=== PATIENT | female | born 1955 | race African-American/Black ===

== ENCOUNTER 2016-03-30 15:50 | Emergency (ER) | payer MEDICAID ==
[~2016-03-30] VITALS: Ht 167.6 cm; Wt 53.5 kg
[~2016-03-30 15:50] MED LIST: ACETAMINOPHEN-1 EAC1; AZITHROMYCIN250 MG ORAL; IBUPROFEN600 MG ORAL; NORCO 5-325 TA1 EACH ORAL; TESSALON PERLE100 M2 ORAL
[2016-03-30 15:59] VITALS: BP 146/90
[2016-03-30] MEDS ORDERED: NKM (16:03)
--- NOTE | 2016-03-30 16:26 | Emergency Room Report ---
History of Present Illness General Chief Complaint: Skin Rash/Abscess Source: Patient Present Illness HPI 60-year-old female presents the emergency department relating of infected abscess to the right lower quadrant X4 days patient states that she believed it was an insect bite it was originally started as a small pimple that progressed evidentially opened and drained on its own. Patient reports a mild erythema around the lesion. Patient reports 10 out of 10 severity tenderness to the open wound. Patient denies nausea, vomiting, fevers, chills, patient denies lymphadenopathy or streaking. Patient denies history of immunocompromise. Denies that this lesion occurred from injection drug use. Denies CP, Palpitations, LOC, AMS, dizziness, Changes in Vision, Sensation, paresthesias, or a sudden severe headache. Allergies: Coded Allergies: No Known Allergies (Unverified , 11/12/13) Patient History Past Medical History: see triage record Past Surgical History: none Pertinent Family History: none Now: No Reviewed Nursing Documentation: PMH: Agreed, PSxH: Agreed Nursing Documentation-PMH Past Medical History: No History, Except For Hx Hypertension: No Hx Pacemaker: No Hx Asthma: Yes Hx COPD: Yes Hx Diabetes: No Hx Cancer: No Hx Gastrointestinal Problems: No Hx Dialysis: No Hx Neurological Problems: No Hx Cerebrovascular Accident: No Hx Seizures: No Review of Systems All Other Systems: negative except mentioned in HPI Physical Exam Vital Signs Date Time Temp Pulse Resp B/P Pulse Ox O2 Delivery O2 Flow Rate FiO2 03/30/16 15:59 98.4 81 16 146/90 95 Room Air Sp02 EP Interpretation: reviewed, normal General Appearance: no apparent distress, alert, GCS 15, non-toxic Head: normocephalic, atraumatic Eyes: bilateral eye PERRL, bilateral eye normal inspection ENT: hearing grossly normal, normal pharynx, no angioedema, normal voice Neck: full range of motion, supple/symm/no masses Respiratory: chest non-tender, lungs clear, normal breath sounds, speaking full sentences Cardiovascular #1: regular rate, rhythm, no edema Gastrointestinal: normal bowel sounds, non tender, soft, no guarding, no rebound, other - 1.2cm draining abscess on the RLQ mild surrounding erythema and moderate TTP. Rectal: deferred Genitourinary: normal inspection, no CVA tenderness Musculoskeletal: back normal, gait/station normal, normal range of motion, non- tender, no calf tenderness Neurologic: alert, oriented x3, responsive, motor strength/tone normal, sensory intact, speech normal Psychiatric: judgement/insight normal, memory normal, mood/affect normal, no suicidal/homicidal ideation Skin: normal color, no rash, warm/dry, well hydrated, other - 1.2cm draining abscess on the RLQ mild surrounding erythema and moderate TTP. Lymphatic: no adenopathy Medical Decision Making PA Attestation Dr. mcdonald is my supervising Physician whom patient management has been discussed with. Diagnostic Impression: Primary Impression: Abscess ER Course Pt. presents to the ED c/o pain, swelling, and erythema with purulent drainage and open wound on the RLQ x 4 days. Ddx considered but are not limited to cellulitis, abscess, cystic acne, necrotizing fasciitis, insect bite. Vital signs: are WNL, pt. is afebrile H&PE are most consistent with draining abscess, no evidence of infection or abdominal wall involvement. mild cellulitis noted. ORDERS: none required at this time, the diagnosis is clinical ED INTERVENTIONS: -I & D- not required as the wound is open and draining. -Wound is copiously irrigated, bacitracin and sterile dressing is applied. - Tetanus -40mg Toradol IM DISCHARGE: At this time pt. is stable for d/c to home. Will provide printed patient care instructions, and any necessary prescriptions. Care plan and follow up instructions have been discussed with the patient prior to discharge. Last Vital Signs Date Time Temp Pulse Resp B/P Pulse Ox O2 Delivery O2 Flow Rate FiO2 03/30/16 15:59 98.4 81 16 146/90 95 Room Air Disposition: HOME, SELF-CARE Condition: Stable Scripts Hydrocodone Bit/Acetaminophen 5-325* (NORCO 5-325*) 1 Each Tablet 1 TAB ORAL Q6H Y for For Pain, #5 TAB 0 Refills Prov: Rachel Velazco P.A. 03/30/16 Trimethoprim/Sulfamethoxazole 160/800* (BACTRIM DS TABLET*) 1 Each Tablet 1 TAB ORAL TWICE A DAY for 7 Days, #14 TAB Prov: Rachel Velazco P.A. 03/30/16 Cephalexin* (KEFLEX*) 500 Mg Capsule 500 MG ORAL EVERY 12 HOURS for 7 Days, #14 CAP 0 Refills Prov: Rachel Velazco 03/30/16 Patient Instructions: Abscess Additional Instructions: Take medications as directed. Follow up with PCP in 3-5 days Return sooner to ED if new symptoms occur, or current symptoms become worse. Do not drink alcohol, drive, or operate heavy machinery while taking Tyrone as this may cause drowsiness. Rachel Velazco Mar 30, 2016 16:26
[2016-03-30] MEDS ORDERED: CEPHALEXIN500 MG ORAL (16:28)
[2016-03-30] MEDS ORDERED: NORCO 5-325 TA1 EACH ORAL (16:28)
[2016-03-30] MEDS ORDERED: BACTRIM DS TAB1 EAC1 ORAL (16:28)
[2016-03-30] MEDS ORDERED: TdaP Vaccine 0.5ml Syr IM ONE (16:30)
[2016-03-30] MEDS ORDERED: Ketorolac 60mg Inj IM ONE (16:30)
[2016-03-30] MEDS ORDERED: Bacitracin Oint UD TOPIC ONE (16:30)
[2016-03-30 16:47] VITALS: BP 146/90
== END 2016-03-30 16:49 | disposition home or self-care (01) ==
LOC: EMR 16:38
DX: L02.211 Cutaneous abscess of abdominal wall (principal); Z23 Encounter for immunization; J44.9 Chronic obstructive pulmonary disease, unspecified; J45.909 Unspecified asthma, uncomplicated
CPT/HCPCS: 90471; 90715; 96372; 99284

== ENCOUNTER 2017-12-16 09:52 | Emergency (ER) | payer MEDICAID ==
[~2017-12-16] VITALS: Ht 170.2 cm; Wt 49.0 kg
[~2017-12-16 09:52] MED LIST changes: +BACTRIM DS TAB1 EAC1 ORAL; +CEPHALEXIN500 MG ORAL; +NKM
--- NOTE | 2017-12-16 10:26 | Emergency Room Report ---
History of Present Illness General Chief Complaint: General Complaint Source: Patient Present Illness HPI Patient presents with wheezing and shortness of breath. Her doctor has prescribed a nebulizer for her but it hasn't come yet. She has dyspnea on exertion and fairly severe COPD. She states that she never smoked but has been exposed to secondhand smoke all her life. She does produce some phlegm however there is no blood and there is no color. She denies any fevers or chills. She denies any chest pain. The second problem is that she has spinal stenosis. She's requesting a re-fill a [place] prescription for her. She states that her doctor has requested that we do this until she can see him. In reviewing our charts she hasn't been here since last year. At that time she was given prescriptions for Motrin only. She 's pressuring to get a prescription for [place] at this time. No rash, headache, nausea, vomiting, diarrhea, dysuria. Allergies: Coded Allergies: No Known Allergies (Unverified , 11/12/13) Patient History Past Medical History: see triage record Social History: Denies: smoking - second hand Social History Narrative at home Reviewed Nursing Documentation: PMH: Agreed; PSxH: Agreed Nursing Documentation-PMH Past Medical History: No History, Except For Hx Cardiac Problems: No - Chronic Arthritis Hx Hypertension: No Hx Pacemaker: No Hx Asthma: Yes Hx COPD: Yes Hx Diabetes: No Hx Cancer: No Hx Gastrointestinal Problems: No Hx Dialysis: No Hx Neurological Problems: No Hx Cerebrovascular Accident: No Hx Seizures: No Review of Systems All Other Systems: negative except mentioned in HPI Physical Exam Vital Signs Date Time Temp Pulse Resp B/P (MAP) Pulse Ox O2 Delivery O2 Flow Rate FiO2 12/16/17 09:55 98.4 88 22 135/91 96 Room Air Sp02 EP Interpretation: reviewed, normal General Appearance: no apparent distress, GCS 15, thin Head: normocephalic, atraumatic Eyes: bilateral eye normal inspection, bilateral eye PERRL ENT: moist mucus membranes Neck: supple Respiratory: decreased breath sounds, other - increased expiratory phase Cardiovascular #1: regular rate, rhythm, no edema Cardiovascular #2: 2+ radial (R) Gastrointestinal: normal inspection, normal bowel sounds, non tender, no mass, non-distended, scaphoid Musculoskeletal: back normal, gait/station normal, normal range of motion Neurologic: alert, oriented x3, grossly normal Psychiatric: other - pressuring for pain meds Skin: normal inspection, warm/dry Medical Decision Making Diagnostic Impression: Primary Impression: COPD exacerbation Additional Impressions: Chronic back pain Qualified Codes: M54.5 - Low back pain; G89.29 - Other chronic pain Cocaine abuse Drug-seeking behavior ER Course Patient presents with 2 problems. One is dyspnea with wheezing. I differential includes acute myocardial infarction, exacerbation of COPD, bronchitis and pneumonia. Evaluation will be with B with EKG, chest x-ray and labs. The patient will be treated with breathing treatments. The second problem is chronic back pain. She's requesting opiate prescription. She'll be treated here with IV Toradol. Cures will be checked. EKG with normal sinus rhythm, possible left atrial enlargement and rate of 66 normal intervals and nonspecific ST-T wave changes. CXR with COPD. Labs with normal CBC, CMP. CK slightly elevated. UA clear. Tox + cocaine. Discussed this with patient. Also review of Cures reveals no [place] prescribed by PMD - only Soma and Tylenol #3. Discussed this also with patient. Improved. Patient stable for outpatient observation and treatment. Laboratory Tests Test 12/16/17 10:35 12/16/17 11:00 White Blood Count 7.1 K/UL (4.8-10.8) Red Blood Count 5.09 M/UL (4.20-5.40) Hemoglobin 13.8 G/DL (12.0-16.0) Hematocrit 41.8 % (37.0-47.0) Mean Corpuscular Volume 82 FL (80-99) Mean Corpuscular Hemoglobin 27.0 PG (27.0-31.0) Mean Corpuscular Hemoglobin Concent 32.9 G/DL (32.0-36.0) Red Cell Distribution Width 12.6 % (11.6-14.8) Platelet Count 253 K/UL (150-450) Mean Platelet Volume 6.3 FL (6.5-10.1) L Neutrophils (%) (Auto) 68.6 % (45.0-75.0) Lymphocytes (%) (Auto) 17.8 % (20.0-45.0) L Monocytes (%) (Auto) 7.8 % (1.0-10.0) Eosinophils (%) (Auto) 4.8 % (0.0-3.0) H Basophils (%) (Auto) 1.0 % (0.0-2.0) Sodium Level 144 MMOL/L (136-145) Potassium Level 4.1 MMOL/L (3.5-5.1) Chloride Level 107 MMOL/L (98-107) Carbon Dioxide Level 29 MMOL/L (21-32) Anion Gap 9 mmol/L (5-15) Blood Urea Nitrogen 18 mg/dL (7-18) Creatinine 1.0 MG/DL (0.55-1.30) Estimate Glomerular Filtration Rate > 60 mL/min (>60) Glucose Level 93 MG/DL (74-106) Calcium Level 8.9 MG/DL (8.5-10.1) Total Bilirubin 0.6 MG/DL (0.2-1.0) Aspartate Amino Transferase (AST) 25 U/L (15-37) Alanine Aminotransferase (ALT) 26 U/L (12-78) Alkaline Phosphatase 55 U/L (46-116) Total Creatine Kinase 404 U/L (26-308) H Troponin I 0.017 ng/mL (0.000-0.056) Pro-B-Type Natriuretic Peptide 52 pg/mL (0-125) Total Protein 7.6 G/DL (6.4-8.2) Albumin 3.5 G/DL (3.4-5.0) Globulin 4.1 g/dL Albumin/Globulin Ratio 0.9 (1.0-2.7) L Urine Color Pale yellow Urine Appearance Clear Urine pH 7 (4.5-8.0) Urine Specific [place] 1.010 (1.005-1.035) Urine Protein Negative (NEGATIVE) Urine Glucose (UA) Negative (NEGATIVE) Urine Ketones Negative (NEGATIVE) Urine Blood Negative (NEGATIVE) Urine Nitrite Negative (NEGATIVE) Urine Bilirubin Negative (NEGATIVE) Urine Urobilinogen Normal MG/DL (0.0-1.0) Urine Leukocyte Esterase 1+ (NEGATIVE) H Urine RBC 0-2 /HPF (0 - 2) Urine WBC 2-4 /HPF (0 - 2) Urine Squamous Epithelial Cells Occasional /LPF Urine Bacteria Occasional /HPF (NONE) Urine Opiates Screen Negative (NEGATIVE) Urine Barbiturates Screen Negative (NEGATIVE) Phencyclidine (PCP) Screen Negative (NEGATIVE) Urine Amphetamines Screen Negative (NEGATIVE) Urine Benzodiazepines Screen Negative (NEGATIVE) Urine Cocaine Screen Positive (NEGATIVE) H Urine Marijuana (THC) Screen Negative (NEGATIVE) EKG Diagnostic Results Rate: normal Rhythm: NSR ST Segments: no acute changes - LAE, ST changes anteriorly Rhythm Strip Diag. Results EP Interpretation: yes Rhythm: NSR, no PVC's, no ectopy Chest X-Ray Diagnostic Results Chest X-Ray Diagnostic Results : Chest X-Ray Ordered: Yes # of Views/Limited/Complete: 1 View Indication: Shortness of Breath EP Interpretation: Yes Interpretation: no consolidation, no effusion, no pneumothorax, other - COPD Impression: Other Electronically Signed by: Richard Woodruff MD Last Vital Signs Date Time Temp Pulse Resp B/P (MAP) Pulse Ox O2 Delivery O2 Flow Rate FiO2 12/16/17 12:52 98.4 63 14 120/75 99 Room Air 21 Status: improved Disposition: HOME, SELF-CARE Condition: Improved Scripts Albuterol Sulfate* (ALBUTEROL SULFATE MDI*) 8.5 Gm Hfa.aer.ad 2 PUFF INH Q6H, #1 EA 0 Refills Prov: Richard Woodruff MD 12/16/17 Beclomethasone Dipropionate 40MCG Oral Inh (QVAR 40*) 7.3 Gm Aer.w.adap 2 PUFFS INH TWICE A DAY, #1 GM 0 Refills Prov: Richard Woodruff MD 12/16/17 Ibuprofen* (MOTRIN*) 600 Mg Tablet 600 MG ORAL Q6H PRN for For Pain, #20 TAB Prov: Richard Woodruff MD 12/16/17 Richard Woodruff MD Dec 16, 2017 10:26
[2017-12-16] MEDS ORDERED: Ketorolac 30mg Inj IV ONE (10:30)
[2017-12-16] MEDS ORDERED: Ipratropium 0.02% Inh Soln 2.5ml UD HHN ONE (10:30)
[2017-12-16] MEDS ORDERED: Albuterol ud Inhalation HHN ONE (10:30)
[2017-12-16 10:41] VITALS: BP 120/75
[2017-12-16 11:01] LABS: EOSINOPHILS % (AUTO) 4.8 % (0.0-3.0); HEMATOCRIT 41.8 % (37.0-47.0); HEMOGLOBIN 13.8 G/DL (12.0-16.0); LYMPHOCYTES % (AUTO) 17.8 % (20.0-45.0); MEAN CORPUSCULAR VOLUME 82 FL (80-99); MONOCYTES % (AUTO) 7.8 % (1.0-10.0); NEUTROPHILS % (AUTO) 68.6 % (45.0-75.0); PLATELET COUNT 253 K/UL (150-450); RED BLOOD COUNT 5.09 M/UL (4.20-5.40); RED CELL DISTRIBUTION WIDTH 12.6 % (11.6-14.8); WHITE BLOOD COUNT 7.1 K/UL (4.8-10.8)
[2017-12-16 11:08] LABS: ANION GAP 9 mmol/L (5-15); BLOOD UREA NITROGEN 18 mg/dL (7-18); CALCIUM 8.9 MG/DL (8.5-10.1); CARBON DIOXIDE 29 MMOL/L (21-32); CHLORIDE 107 MMOL/L (98-107); POTASSIUM 4.1 MMOL/L (3.5-5.1); SODIUM 144 MMOL/L (136-145)
[2017-12-16 11:19] LABS: ALANINE AMINOTRANSFERASE 26 U/L (12-78); ALBUMIN 3.5 G/DL (3.4-5.0); ALBUMIN/GLOBULIN RATIO 0.9 (1.0-2.7); ALKALINE PHOSPHATASE 55 U/L (46-116); ASPARTATE AMINO TRANSFERASE 25 U/L (15-37); BILIRUBIN,TOTAL 0.6 MG/DL (0.2-1.0); CREATINE KINASE 404 U/L (26-308)
[2017-12-16 11:28] LABS: APPEARANCE,URINE CLEAR; BILIRUBIN, URINE NEGATIVE (NEGATIVE); COLOR,URINE PALE YELLOW; GLUCOSE, URINE (UA) NEGATIVE (NEGATIVE); KETONES,URINE NEGATIVE (NEGATIVE); LEUKOCYTE ESTERASE ,URINE 1+ (NEGATIVE); NITRITE,URINE NEGATIVE (NEGATIVE); PH,URINE 7 (4.5-8.0); PROTEIN,URINE NEGATIVE (NEGATIVE); UROBILINOGEN,URINE NORMAL MG/DL (0.0-1.0)
--- NOTE | 2017-12-16 11:46 | Diagnostic Imaging Report ---
Indication: Shortness of breath Technique: One view of the chest Comparison: 12/13/2014 Findings: Lungs are hyperinflated. Bilateral basilar nodular nipple shadow is again demonstrated. Linear scarring is again demonstrated in the right lung apex. Lungs and pleural spaces remain clear otherwise. The heart size is normal. Impression: Hyperinflation compatible with COPD No acute process.
[2017-12-16] MEDS ORDERED: ALBUTEROL SULF8.5 GM INH (12:28)
[2017-12-16] MEDS ORDERED: QVAR7.3 GM INH (12:28)
[2017-12-16] MEDS ORDERED: IBUPROFEN600 MG ORAL (12:28)
[2017-12-16 12:52] VITALS: BP 120/75
== END 2017-12-16 12:52 | disposition home or self-care (01) ==
LOC: EMR 10:21
DX: J45.901 Unspecified asthma with (acute) exacerbation (principal); M54.5 Low back pain; G89.29 Other chronic pain; F14.10 Cocaine abuse, uncomplicated; Z76.5 Malingerer [conscious simulation]
CPT/HCPCS: 36415; 71045; 80053; 80307; 81003; 82550; 83880; 84484; 85025; 93005; 94664; 96374; 99284; J1885

== ENCOUNTER 2018-07-10 08:36 | Inpatient (IN) | payer MEDICAID, OTHER ==
[~2018-07-10] VITALS: Ht 167.6 cm; Wt 48.5 kg
[~2018-07-10 08:36] MED LIST changes: +ALBUTEROL SULF8.5 GM INH; +QVAR7.3 GM INH
[2018-07-10 08:56] VITALS: BP 128/86
--- NOTE | 2018-07-10 08:56 | NUR ---
ED Nurse Note: pt walked in due to shortness of breath started 2 weeks ago, pt stated that she called 911 2 days ago for the same reason and was relieved by albuterol. pt stated the symptom got worsen today that is why she went to the ed. pt stated she has cough for a long time, pt auscultated and noted to have deminished lung soung. pt stated she has hx of copd for 2nd hand smoker, denies hx of smoking. pt noted to have non productive cough. pt unable to give urine specimen as of the moment. iv was inserted to pt left ac, blood drawn and sent to lab. seen by ermd and pt was medicated and tolerated well. pt hooked on monitor with vs within normal limit. will continue to monitor.
[2018-07-10] MEDS ORDERED: Ipratropium 0.02% Inh Soln 2.5ml UD HHN ONE (09:00)
[2018-07-10] MEDS ORDERED: Solu-MEDROL 125mg Inj IVP ONE (09:00)
[2018-07-10] MEDS ORDERED: Albuterol ud Inhalation HHN ONE (09:00)
--- NOTE | 2018-07-10 09:10 | NUR ---
ED Nurse Note: respiratory therapist on bedside giving pt nebulization
--- NOTE | 2018-07-10 09:12 | Emergency Room Report ---
History of Present Illness General Chief Complaint: Dyspnea/Respdistress Source: Patient Present Illness HPI Patient present with complaints of shortness of breath and cough Patient's history of COPD reports that 2 nights ago She had contacted the paramedics she was given a treatment at home and did not required to come to the hospital as her symptoms continue to worsen she presents today Denies any fevers she does have increased phlegm production however Denies any vomiting or diarrhea denies any recent travel She does report subjective low-grade fevers Allergies: Coded Allergies: No Known Allergies (Unverified , 11/12/13) Patient History Past Medical History: see triage record Pertinent Family History: none Reviewed Nursing Documentation: PMH: Agreed; PSxH: Agreed Nursing Documentation-PMH Hx Cardiac Problems: No - Chronic Arthritis Hx Hypertension: No Hx Pacemaker: No Hx Asthma: Yes Hx COPD: Yes Hx Diabetes: No Hx Cancer: No Hx Gastrointestinal Problems: No Hx Dialysis: No Hx Neurological Problems: No Hx Cerebrovascular Accident: No Hx Seizures: No Review of Systems All Other Systems: negative except mentioned in HPI Physical Exam Vital Signs Date Time Temp Pulse Resp B/P (MAP) Pulse Ox O2 Delivery O2 Flow Rate FiO2 07/10/18 08:41 98.2 80 18 92 Room Air 07/10/18 08:56 128/86 07/10/18 08:57 21 Sp02 EP Interpretation: reviewed, abnormal - 92% on room air which is a low interpretation General Appearance: mild distress - Short of breath Head: normocephalic, atraumatic Eyes: bilateral eye PERRL, bilateral eye EOMI ENT: normal pharynx, no angioedema Neck: supple Respiratory: no rhonchi, no retraction, crackles - Bilaterally Cardiovascular #1: regular rate, rhythm Gastrointestinal: non tender, soft Genitourinary: no CVA tenderness Musculoskeletal: normal inspection Neurologic: alert, oriented x3, responsive Skin: normal color, no rash Lymphatic: no adenopathy Medical Decision Making Diagnostic Impression: Primary Impression: COPD (chronic obstructive pulmonary disease) Additional Impression: Respiratory distress ER Course Patient is a fairly complex patient with multiple differential to consideration including but not limited to cardiac cardiopulmonary and vascular emergencies Patient has done better with breathing treatments and steroids Continues to have wheezing and difficulty with respiration however without oxygen at this time requires further inpatient care Labs Test 07/10/18 09:10 07/11/18 07:10 White Blood Count 9.3 K/UL (4.8-10.8) 10.8 K/UL (4.8-10.8) Red Blood Count 5.22 M/UL (4.20-5.40) 4.76 M/UL (4.20-5.40) Hemoglobin 13.5 G/DL (12.0-16.0) 12.3 G/DL (12.0-16.0) Hematocrit 42.1 % (37.0-47.0) 38.2 % (37.0-47.0) Mean Corpuscular Volume 81 FL (80-99) 80 FL (80-99) Mean Corpuscular Hemoglobin 25.8 PG (27.0-31.0) 25.9 PG (27.0-31.0) Mean Corpuscular Hemoglobin Concent 32.0 G/DL (32.0-36.0) 32.3 G/DL (32.0-36.0) Red Cell Distribution Width 14.3 % (11.6-14.8) 13.9 % (11.6-14.8) Platelet Count 277 K/UL (150-450) 306 K/UL (150-450) Mean Platelet Volume 6.1 FL (6.5-10.1) 6.5 FL (6.5-10.1) Neutrophils (%) (Auto) 73.2 % (45.0-75.0) 83.5 % (45.0-75.0) Lymphocytes (%) (Auto) 16.6 % (20.0-45.0) 10.6 % (20.0-45.0) Monocytes (%) (Auto) 7.4 % (1.0-10.0) 5.6 % (1.0-10.0) Eosinophils (%) (Auto) 1.9 % (0.0-3.0) 0.0 % (0.0-3.0) Basophils (%) (Auto) 0.9 % (0.0-2.0) 0.3 % (0.0-2.0) Sodium Level 137 MMOL/L (136-145) 139 MMOL/L (136-145) Potassium Level 4.4 MMOL/L (3.5-5.1) 4.2 MMOL/L (3.5-5.1) Chloride Level 104 MMOL/L (98-107) 103 MMOL/L (98-107) Carbon Dioxide Level 28 MMOL/L (21-32) 26 MMOL/L (21-32) Anion Gap 5 mmol/L (5-15) 10 mmol/L (5-15) Blood Urea Nitrogen 13 mg/dL (7-18) 16 mg/dL (7-18) Creatinine 0.8 MG/DL (0.55-1.30) 1.0 MG/DL (0.55-1.30) Estimat Glomerular Filtration Rate > 60 mL/min (>60) > 60 mL/min (>60) Glucose Level 118 MG/DL (74-106) 151 MG/DL (74-106) Calcium Level 9.0 MG/DL (8.5-10.1) 8.7 MG/DL (8.5-10.1) Total Bilirubin 0.4 MG/DL (0.2-1.0) Aspartate Amino Transf (AST/SGOT) 27 U/L (15-37) Alanine Aminotransferase (ALT/SGPT) 27 U/L (12-78) Alkaline Phosphatase 63 U/L (46-116) Total Creatine Kinase 296 U/L (26-308) Creatine Kinase MB 2.0 NG/ML (0.0-3.6) Creatine Kinase MB Relative Index 0.6 Troponin I 0.000 ng/mL (0.000-0.056) Pro-B-Type Natriuretic Peptide 26 pg/mL (0-125) Total Protein 7.8 G/DL (6.4-8.2) Albumin 3.3 G/DL (3.4-5.0) Globulin 4.5 g/dL Albumin/Globulin Ratio 0.7 (1.0-2.7) Rhythm Strip Diag. Results EP Interpretation: yes Rate: 88 Rhythm: NSR, no PVC's, no ectopy Chest X-Ray Diagnostic Results Chest X-Ray Diagnostic Results : Chest X-Ray Ordered: Yes # of Views/Limited/Complete: 1 View Indication: Shortness of Breath EP Interpretation: Yes Interpretation: no consolidation, no effusion, no pneumothorax Impression: No acute disease Electronically Signed by: Bony Hart DO Last Vital Signs Date Time Temp Pulse Resp B/P (MAP) Pulse Ox O2 Delivery O2 Flow Rate FiO2 5/20/19 08:57 77 22 95 Room Air 21 07/10/18 08:56 98.2 128/86 Status: improved Disposition: ADMITTED INPATIENT Condition: Serious Scripts Methylprednisolone (Methylprednisolone*) 4MG Dspk 4 MG ORAL DIRECTED for 6 Days, #21 EA 0 Refills Day 1: Two tablets before breakfast, one after lunch, one after dinner, and two at bedtime. If started late in the day, take all six tablets at once or divide into two or three doses, unless otherwise directed by prescriber. Day 2: One tablet before breakfast, one after lunch, one after dinner, and two at bedtime Day 3: One tablet before breakfast, one after lunch, one after dinner, and one at bedtime Day 4: One tablet before breakfast, one after lunch, and one at bedtime Day 5: One tablet before breakfast and one at bedtime Day 6: One tablet before breakfast Prov: Cynthia Lowery MD 07/11/18 Sulfamethoxazole/Trimethoprim (BACTRIM 400-80 MG TABLET*) 1 Each Tablet 1 TAB ORAL TWICE A DAY for 5 Days, TAB Prov: Cynthia Lowery MD 07/11/18 Theophylline (THEODUR*) 100 Mg Tab.er.12h 100 MG ORAL EVERY 12 HOURS for 30 Days, TAB Prov: Cynthia Lowery MD 07/11/18 Bony Hart DO July 10, 2018 09:12
--- NOTE | 2018-07-10 09:17 | NUR ---
ED Nurse Note: dental laboratory technician on bedside.
[2018-07-10 09:22] LABS: BASOPHILS % (AUTO) 0.9 % (0.0-2.0); EOSINOPHILS % (AUTO) 1.9 % (0.0-3.0); HEMATOCRIT 42.1 % (37.0-47.0); HEMOGLOBIN 13.5 G/DL (12.0-16.0); LYMPHOCYTES % (AUTO) 16.6 % (20.0-45.0); MEAN CORPUSCULAR VOLUME 81 FL (80-99); MONOCYTES % (AUTO) 7.4 % (1.0-10.0); NEUTROPHILS % (AUTO) 73.2 % (45.0-75.0); PLATELET COUNT 277 K/UL (150-450); RED BLOOD COUNT 5.22 M/UL (4.20-5.40); RED CELL DISTRIBUTION WIDTH 14.3 % (11.6-14.8); WHITE BLOOD COUNT 9.3 K/UL (4.8-10.8)
[2018-07-10] MEDS ORDERED: HYDROcodone/Acetamin 5/325 tab ORAL ONE (09:30)
[2018-07-10 09:32] LABS: ANION GAP 5 mmol/L (5-15); BLOOD UREA NITROGEN 13 mg/dL (7-18); CARBON DIOXIDE 28 MMOL/L (21-32); CHLORIDE 104 MMOL/L (98-107); CREATININE 0.8 MG/DL (0.55-1.30); POTASSIUM 4.4 MMOL/L (3.5-5.1); SODIUM 137 MMOL/L (136-145)
[2018-07-10 09:47] LABS: ALANINE AMINOTRANSFERASE 27 U/L (12-78); ALBUMIN 3.3 G/DL (3.4-5.0); ALBUMIN/GLOBULIN RATIO 0.7 (1.0-2.7); ALKALINE PHOSPHATASE 63 U/L (46-116); ASPARTATE AMINO TRANSFERASE 27 U/L (15-37); BILIRUBIN,TOTAL 0.4 MG/DL (0.2-1.0); CREATINE KINASE 296 U/L (26-308)
[2018-07-10 10:17] VITALS: BP 144/87
--- NOTE | 2018-07-10 10:40 | NUR ---
ED Nurse Note: pt is admitted to the hospital. repoprt given to Elis ruth. RN stated to give her 15 minutes to set up everything to the room.
[2018-07-10] MEDS ORDERED: AMLODIPINE BESY10 MG ORAL (10:47)
[2018-07-10] MEDS ORDERED: Nitroglycerin Subl 0.4mg tab SL PRN (11:15)
[2018-07-10] MEDS ORDERED: LORazepam Inj 2mg/ml 1ml IV PRN ×3 (11:15→11:30)
[2018-07-10] MEDS ORDERED: Promethazine/Codeine 5ml UD ORAL PRN (11:15)
[2018-07-10] MEDS ORDERED: Morphine Sulfate 2mg/ml Inj(IV/IM USE ONLY) IVP PRN ×2 (11:15→11:30)
--- NOTE | 2018-07-10 11:25 | NUR ---
ED Nurse Note: pt was transfered to tele room 205, all belongings endorsed to meredith rn.
--- NOTE | 2018-07-10 11:30 | NUR ---
NURSE NOTES: Patient transferred form ED, Report received from Estrella/RN. Heart Monitor in place, IV patent. Patient alert and oriented, No sign of distress/SOB noted. Vitals are B/P 144/87, Temp. 98.1, HR 76, RR 16, O2 stat 95%. Bed in lowest position and locked. Call light within reach. Will continue plan of care.
[2018-07-10 12:00] VITALS: BP 144/87
--- NOTE | 2018-07-10 12:38 | Consultation ---
History of Present Illness General Date patient seen: July 10, 2018 Chief Complaint: Dyspnea/Respdistress Present Illness HPI 63 year old female with hx of COPD presented to ER with complaints of shortness of breath and cough. Denies any fevers she does have increased phlegm production however. Denies any vomiting or diarrhea denies any recent travel. She is admitted to telemetry for acute exacerbation of COPD. Allergies: Coded Allergies: No Known Allergies (Unverified , 11/12/13) Medication History Scheduled Albuterol Sulfate* (Albuterol Sulfate Mdi*), 2 PUFF INH Q6H Amlodipine Besylate* (Amlodipine Besylate*), 10 MG ORAL DAILY, (Reported) Beclomethasone Dipropionate 40MCG Oral Inh (Qvar 40*), 2 PUFFS INH TWICE A DAY Cephalexin* (Keflex*), 500 MG ORAL EVERY 12 HOURS Ibuprofen* (Motrin*), 600 MG ORAL THREE TIMES A DAY No Known Medications* (NKM - No Known Medications*), 0 ., (Reported) Trimethoprim/Sulfamethoxazole 160/800* (Bactrim Ds Tablet*), 1 TAB ORAL TWICE A DAY Scheduled PRN Hydrocodone Bit/Acetaminophen 5-325* ([place] 5-325*), 1 TAB ORAL Q6H PRN for For Pain Ibuprofen* (Motrin*), 600 MG ORAL Q6H PRN for For Pain Patient History Healthcare decision maker Resuscitation status Advanced Directive on File Past Medical/Surgical History Past Medical/Surgical History: (1) COPD (chronic obstructive pulmonary disease) (2) Inguinal hernia (3) Chronic back pain (4) Cocaine abuse Review of Systems All Other Systems: negative except mentioned in HPI Physical Exam General Appearance: thin Lines, tubes and drains: peripheral HEENT: normocephalic, atraumatic Neck: non-tender, normal alignment Respiratory/Chest: lungs clear, normal breath sounds Cardiovascular/Chest: normal peripheral pulses Abdomen: normal bowel sounds, non tender Genitourinary/Rectal: normal genital exam Extremities: normal range of motion Last 24 Hour Vital Signs Date Time Temp Pulse Resp B/P (MAP) Pulse Ox O2 Delivery O2 Flow Rate FiO2 07/10/18 11:25 98.2 80 16 128/86 94 Room Air 07/10/18 10:17 98.0 76 16 144/87 95 Room Air 07/10/18 09:57 98.2 07/10/18 09:07 70 18 99 Room Air 21 07/10/18 08:57 77 22 95 Room Air 21 07/10/18 08:56 78 19 Room Air 07/10/18 08:56 98.2 78 18 128/86 92 Room Air 07/10/18 08:41 98.2 80 18 92 Room Air Laboratory Tests Test 07/10/18 09:10 White Blood Count 9.3 K/UL (4.8-10.8) Red Blood Count 5.22 M/UL (4.20-5.40) Hemoglobin 13.5 G/DL (12.0-16.0) Hematocrit 42.1 % (37.0-47.0) Mean Corpuscular Volume 81 FL (80-99) Mean Corpuscular Hemoglobin 25.8 PG (27.0-31.0) L Mean Corpuscular Hemoglobin Concent 32.0 G/DL (32.0-36.0) Red Cell Distribution Width 14.3 % (11.6-14.8) Platelet Count 277 K/UL (150-450) Mean Platelet Volume 6.1 FL (6.5-10.1) L Neutrophils (%) (Auto) 73.2 % (45.0-75.0) Lymphocytes (%) (Auto) 16.6 % (20.0-45.0) L Monocytes (%) (Auto) 7.4 % (1.0-10.0) Eosinophils (%) (Auto) 1.9 % (0.0-3.0) Basophils (%) (Auto) 0.9 % (0.0-2.0) Sodium Level 137 MMOL/L (136-145) Potassium Level 4.4 MMOL/L (3.5-5.1) Chloride Level 104 MMOL/L (98-107) Carbon Dioxide Level 28 MMOL/L (21-32) Anion Gap 5 mmol/L (5-15) Blood Urea Nitrogen 13 mg/dL (7-18) Creatinine 0.8 MG/DL (0.55-1.30) Estimat Glomerular Filtration Rate > 60 mL/min (>60) Glucose Level 118 MG/DL (74-106) H Calcium Level 9.0 MG/DL (8.5-10.1) Total Bilirubin 0.4 MG/DL (0.2-1.0) Aspartate Amino Transf (AST/SGOT) 27 U/L (15-37) Alanine Aminotransferase (ALT/SGPT) 27 U/L (12-78) Alkaline Phosphatase 63 U/L (46-116) Total Creatine Kinase 296 U/L (26-308) Creatine Kinase MB 2.0 NG/ML (0.0-3.6) Creatine Kinase MB Relative Index 0.6 Troponin I 0.000 ng/mL (0.000-0.056) Pro-B-Type Natriuretic Peptide 26 pg/mL (0-125) Total Protein 7.8 G/DL (6.4-8.2) Albumin 3.3 G/DL (3.4-5.0) L Globulin 4.5 g/dL Albumin/Globulin Ratio 0.7 (1.0-2.7) L Height (Feet): 5 Height (Inches): 6.00 Weight (Pounds): 107 Medications Current Medications Medications (Trade) Dose Ordered Sig/Kathie Route PRN Reason Start Time Stop Time Status Last Admin Dose Admin Albuterol/ Ipratropium (Albuterol/ Ipratropium) 3 ml Q4H PRN HHN dyspnea 07/10/18 11:15 07/15/18 11:14 Dextrose (Dextrose 50%) 25 ml Q30M PRN IV Hypoglycemia 07/10/18 10:45 08/09/18 10:44 Dextrose (Dextrose 50%) 50 ml Q30M PRN IV Hypoglycemia 07/10/18 11:15 08/09/18 11:14 Heparin Sodium (Porcine) (Heparin 5000 units/ml) 5,000 units EVERY 12 HOURS SUBQ 07/10/18 21:00 08/09/18 20:59 Lorazepam (Ativan 2mg/ml 1ml) 0.5 mg Q4H PRN IV For Anxiety 07/10/18 11:30 07/17/18 11:14 Methylprednisolone Sodium Succinate (Solu-MEDROL) 60 mg EVERY 6 HOURS IV 07/10/18 12:00 08/09/18 11:59 Morphine Sulfate (Morphine Sulfate) 2 mg Q4H PRN IVP severe pain 7-10 07/10/18 11:30 07/17/18 11:14 Nitroglycerin (Ntg) 0.4 mg Q5M X 3 DOSES PRN SL Prn Chest Pain 07/10/18 11:15 08/09/18 11:14 Ondansetron HCl (Zofran) 4 mg Q6H PRN IVP Nausea & Vomiting 07/10/18 11:15 08/09/18 11:14 Piperacillin Sod/ Tazobactam Sod 3.375 gm/Sodium Chloride 110 ml @ 27.5 mls/hr EVERY 8 HOURS IVPB 07/10/18 14:00 07/15/18 13:59 Promethazine HCl/ Codeine (Phenergan with Codeine) 5 ml Q6H PRN ORAL cough 07/10/18 11:15 08/09/18 11:14 Temazepam (Restoril) 15 mg HSPRN PRN ORAL Insomnia 07/10/18 21:00 07/17/18 20:59 Theophylline (Eddie-Dur) 100 mg EVERY 12 HOURS ORAL 07/10/18 21:00 08/09/18 20:59 Assessment/Plan Problem List: (1) COPD with acute exacerbation ICD Codes: J44.1 - Chronic obstructive pulmonary disease with (acute) exacerbation SNOMED: 276886581 (2) Cocaine abuse ICD Codes: F14.10 - Cocaine abuse, uncomplicated SNOMED: 53906566 (3) Chronic back pain ICD Codes: M54.9 - Dorsalgia, unspecified; G89.29 - Other chronic pain SNOMED: 705889118 Assessment/Plan: respiratory treatment titrate fio2 iv steroids antitussives. Cynthia Lowery MD July 10, 2018 12:38
--- NOTE | 2018-07-10 12:55 | Diagnostic Imaging Report ---
Indication: Dyspnea Comparison: 12/17/1979 A single view chest radiograph was obtained. Findings: Cardiomegaly is again demonstrated. The aorta is ectatic. Lungs are clear. Bones are unremarkable. IMPRESSION: Cardiomegaly. No acute findings
[2018-07-10] MEDS: Solu-MEDROL 125mg Inj IV SCH ×2 (14:00→17:53)
[2018-07-10] MEDS ORDERED: Piperacillin/Tazobactam 2.25 GM in D5W 55 ML IV SCH (14:00)
[2018-07-10] MEDS: Zoysn 3.37gm in NS 100ML IVPB SCH ×2 (14:52→22:01)
[2018-07-10 16:00] VITALS: BP 135/80
[2018-07-10] MEDS: Albuterol/Ipratropium 3ml neb HHN PRN (17:29)
[2018-07-10] MEDS: Morphine Sulfate 2mg/ml Inj(IV/IM USE ONLY) IVP PRN ×2 (17:54→22:01)
--- NOTE | 2018-07-10 19:01 | History & Physical ---
History and Physical History & Physicial Dictated for Int Med-Dr Tucker no. [id number]. Gurpreet Singh MD July 10, 2018 19:01
--- NOTE | 2018-07-10 19:50 | NUR ---
HAND-OFF: Report given to Chanelle/MARIELA, Patient in stable condition. Endorsed plan of care.
--- NOTE | 2018-07-10 19:54 | NUR ---
CASE MANAGEMENT: REVIEW 63Y/F PRESENTED TO ED FROM HOME CC: CONGESTION SI: COPD EXACERBATION T 98.2 HR 80 RR 19 BP 144/87 SAT 92% ROOM AIR MCH 25.8 MPV 6.1 LYMPH 16.6 IS: SOLU MEDROL IV X1 NS IVF BOLUS X1 ATROVENT HHN X1 ALBUTEROL HHN X1 NORCO 5/325 PO X1 PATIENT ADMITTED TO TELEMETRY UNIT 07/10/2018 DCP: PATIENT IS FROM HOME
--- NOTE | 2018-07-10 19:58 | NUR ---
NURSE NOTES: Received report from MARIELA Gillis. Patient is awake lying semi-lagunas's; resting comfortably. No signs of acute distress noted; complains of pain. AOx4; able to make needs known. Ambulates independently. Checked IV site; patent and flushed. No erythema, bleeding, or infiltration noted. Bed at lowest position, brakes on, siderails up x2. Call light within reach. Will continue to monitor.
[2018-07-10 20:00] VITALS: BP 131/79
[2018-07-10] MEDS: Theophylline ER 100mg ORAL SCH (22:01)
[2018-07-10] MEDS: Heparin 5000 units/ml inj SUBQ SCH (22:02)
[2018-07-11] VITALS: BP 127/79
[2018-07-11] MEDS: Solu-MEDROL 125mg Inj IV SCH ×3 (00:12→11:42)
--- NOTE | 2018-07-11 00:30 | History and Physical Report ---
DATE OF ADMISSION: 07/10/2018 CHIEF COMPLAINT: The patient is a 66-year-old female with history of chronic obstructive pulmonary disease, who presents with a chief complaint of shortness of breath and cough. HISTORY OF PRESENT ILLNESS: It began two days prior to admission. The patient began to experience cough productive of a greenish sputum. The patient denies fevers or chills. The patient had shortness of breath. The patient presented to [place] emergency room. The patient is admitted for acute exacerbation of chronic obstructive pulmonary disease. REVIEW OF SYSTEMS: CONSTITUTIONAL: The patient denies weight loss or weight gain. The patient denies fevers or chills. HEENT: The patient denies ear or throat pain. The patient denies headache. CARDIOVASCULAR: The patient denies palpitations or chest pain. CHEST: The patient complains of cough and shortness of breath as above. The patient denies wheezes. ABDOMEN: The patient denies nausea, vomiting, diarrhea, or constipation. GENITOURINARY: The patient denies dysuria or increased frequency of urination. NEUROMUSCULAR: The patient denies seizures or generalized weakness. PAST MEDICAL HISTORY: Significant for, 1. Chronic obstructive pulmonary disease, which the patient states is from secondhand smoke. 2. Spondylosis of the lumbar spine. PAST SURGICAL HISTORY: Significant for thoracotomy secondary to right pleural effusion. CURRENT MEDICATIONS: 1. Albuterol 2.5 mg nebulized q.4 hours p.r.n. 2. ProAir 2 puffs p.o. q.i.d. p.r.n. 3. Amlodipine 10 mg p.o. daily. 4. Qvar 2 puffs p.o. twice daily. 5. [place] 5/325 mg one tablet p.o. q.6 h. p.r.n. 6. Ibuprofen 600 mg p.o. 3 times daily p.r.n. ALLERGIES: No known drug allergies. SOCIAL HISTORY: The patient is single and lives alone. The patient denies tobacco use. The patient denies alcohol use. PHYSICAL EXAMINATION: VITAL SIGNS: Temperature 98.2, respirations 16, pulse 80, and blood pressure 128/86. GENERAL: The patient is a thin-appearing female, in no apparent distress. HEENT: Eyes, pupils are equal and responsive to light and accommodation. Extraocular movements are intact. NECK: Supple without lymphadenopathy. CHEST: Lungs are clear to auscultation bilaterally without wheezes or rales. CARDIOVASCULAR: Regular rhythm and rate. S1 and S2 are normal without murmurs, rubs, or gallops. ABDOMEN: Soft, nontender, and nondistended. Positive bowel sounds. No evidence of hepatosplenomegaly. Currently, no rebound or guarding noted. EXTREMITIES: Negative for clubbing, cyanosis, or edema. RECTAL/GENITAL: Refused. NEUROLOGIC: Cranial nerves II through XII are grossly intact without focal deficits. Motor strength is 5/5 bilaterally. Deep tendon reflexes are 2+ plantar. LABORATORY STUDIES: WBC 9.3, hemoglobin 13.5, hematocrit 42.1, and platelets 277,000. Sodium 137, potassium 4.4, chloride 104, CO2 20, BUN 13, creatinine 0.8, and glucose 118. Troponin 0.0. Chest x-ray is reported as cardiomegaly with no acute disease. ASSESSMENT: This is a 63-year-old female. 1. Cough. 2. Shortness of breath. 3. Acute exacerbation of chronic obstructive pulmonary disease. 4. Acute bronchitis. 5. Spondylosis of the lumbar spine. TREATMENT: 1. Chronic obstructive pulmonary disease, acute exacerbation/bronchitis. A Pulmonary consultation has been obtained with Dr. Cynthia Lowery. The patient has been started empirically on intravenous Zosyn. The patient is also on intravenous Solu-Medrol. We will follow recommendations of Pulmonary. 2. Spondylosis of the lumbar spine. Gurpreet Singh M.D. DR: SHANICE JOB#: [id number] CC:
[2018-07-11] MEDS: Albuterol/Ipratropium 3ml neb HHN PRN (02:24)
--- NOTE | 2018-07-11 03:29 | NUR ---
NURSE NOTES: Patient is asleep lying semi-lagunas's; resting comfortably. No signs of acute distress or pain noted at this time.
[2018-07-11 04:00] VITALS: BP 132/71
--- NOTE | 2018-07-11 05:05 | NUR ---
NURSE NOTES: Called Dr. Lowery regarding patient's request for PRN Percocet since Morphine is not helping her. Awaiting callback.
[2018-07-11] MEDS: Zoysn 3.37gm in NS 100ML IVPB SCH (05:51)
[2018-07-11] MEDS: Morphine Sulfate 2mg/ml Inj(IV/IM USE ONLY) IVP PRN (05:56)
--- NOTE | 2018-07-11 06:55 | NUR ---
NURSE NOTES: Received order from Dr. Lowery for Percocet 10/325 PO q6hr PRN for severe pain. Noted and carried out.
[2018-07-11] MEDS ORDERED: Morphine Sulfate 2mg/ml Inj(IV/IM USE ONLY) IVP PRN (07:00)
--- NOTE | 2018-07-11 07:26 | NUR ---
HAND-OFF: Report given to MARIELA Nair. Patient is awake lying semi-lagunas's; resting comfortably. In stable condition.
--- NOTE | 2018-07-11 07:32 | NUR ---
NURSE NOTES: pt in bed in low position, bed alarm on, call light at bedside, pt complaining of head congestion, suggested an Ice pack or to drink lots of water to thin out the congestion, also stated that I will inform Md of her concern, IV site intact, no s/s of distress or sob noted.
[2018-07-11 08:00] VITALS: BP 144/75
[2018-07-11 08:39] LABS: BASOPHILS % (AUTO) 0.3 % (0.0-2.0); HEMATOCRIT 38.2 % (37.0-47.0); HEMOGLOBIN 12.3 G/DL (12.0-16.0); LYMPHOCYTES % (AUTO) 10.6 % (20.0-45.0); MEAN CORPUSCULAR VOLUME 80 FL (80-99); MONOCYTES % (AUTO) 5.6 % (1.0-10.0); NEUTROPHILS % (AUTO) 83.5 % (45.0-75.0); PLATELET COUNT 306 K/UL (150-450); RED BLOOD COUNT 4.76 M/UL (4.20-5.40); RED CELL DISTRIBUTION WIDTH 13.9 % (11.6-14.8); WHITE BLOOD COUNT 10.8 K/UL (4.8-10.8)
[2018-07-11] MEDS: Theophylline ER 100mg ORAL SCH (08:41)
[2018-07-11] MEDS: Heparin 5000 units/ml inj SUBQ SCH (08:43)
[2018-07-11 08:50] LABS: ANION GAP 10 mmol/L (5-15); BLOOD UREA NITROGEN 16 mg/dL (7-18); CALCIUM 8.7 MG/DL (8.5-10.1); CARBON DIOXIDE 26 MMOL/L (21-32); CHLORIDE 103 MMOL/L (98-107); POTASSIUM 4.2 MMOL/L (3.5-5.1); SODIUM 139 MMOL/L (136-145)
--- NOTE | 2018-07-11 11:36 | NUR ---
*-* INSURANCE *-* ALL CLINICALS AND REVIEWS HAVE BEEN FAXED TO: JUSTINO MICHELE# [id number] P:[phone] F:[phone] Addendum: 07/11/18 at 1140 by TANNER ORO CM NCM:THERESE
[2018-07-11 12:00] VITALS: BP 141/84
[2018-07-11] MEDS ORDERED: THEOPHYLLINE A100 MG ORAL (12:03)
[2018-07-11] MEDS ORDERED: MEDROL DOSEPAK4 MG ORAL (12:03)
[2018-07-11] MEDS ORDERED: BACTRIM 400-801 EACH ORAL (12:03)
--- NOTE | 2018-07-11 12:11 | Pulmonology Progress Note ---
Assessment/Plan Problems: (1) COPD with acute exacerbation (2) Cocaine abuse (3) Chronic back pain Assessment/Plan improving titrate fio2 continue abx pt can go home with po abx and theophylline/ Subjective ROS Limited/Unobtainable: No Constitutional: Reports: no symptoms HEENT: Repors: no symptoms Allergies: Coded Allergies: No Known Allergies (Unverified , 11/12/13) Objective Last 24 Hour Vital Signs Date Time Temp Pulse Resp B/P (MAP) Pulse Ox O2 Delivery O2 Flow Rate FiO2 07/11/18 08:00 98.9 90 20 144/75 (98) 92 07/11/18 07:47 Room Air 07/11/18 07:40 89 07/11/18 04:00 98.1 80 18 132/71 (91) 96 07/11/18 04:00 90 07/11/18 02:27 90 20 92 Room Air 21 07/11/18 00:00 79 07/11/18 00:00 96.5 85 18 127/79 (95) 97 07/10/18 21:00 Room Air 07/10/18 20:00 99.2 90 18 131/79 (96) 97 07/10/18 20:00 89 07/10/18 19:41 90 18 97 Room Air 21 07/10/18 17:35 8 22 98 Room Air 21 07/10/18 17:15 72 24 96 Room Air 21 07/10/18 16:00 82 07/10/18 16:00 97.9 86 19 135/80 (98) 97 07/10/18 12:38 Room Air Intake and Output 07/10/18 07/11/18 19:00 07:00 Intake Total 1500 ml 381.6 ml Balance 1500 ml 381.6 ml Intake Oral 500 ml 240 ml IV Total 1000 ml 141.6 ml # Voids 2 General Appearance: cachetic HEENT: normocephalic, atraumatic Respiratory/Chest: chest wall non-tender, lungs clear Breasts: no masses Cardiovascular: normal rate Abdomen: normal bowel sounds, soft, non tender Genitourinary: normal external genitalia Skin: no rash Neurologic/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: 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 Laboratory Tests 07/11/18 07:10: White Blood Count 10.8, Red Blood Count 4.76, Hemoglobin 12.3, Hematocrit 38.2, Mean Corpuscular Volume 80, Mean Corpuscular Hemoglobin 25.9L, Mean Corpuscular Hemoglobin Concent 32.3, Red Cell Distribution Width 13.9, Platelet Count 306, Mean Platelet Volume 6.5, Neutrophils (%) (Auto) 83.5H, Lymphocytes (%) (Auto) 10.6L, Monocytes (%) (Auto) 5.6, Eosinophils (%) (Auto) 0.0, Basophils (%) (Auto ) 0.3, Sodium Level 139, Potassium Level 4.2, Chloride Level 103, Carbon Dioxide Level 26, Anion Gap 10, Blood Urea Nitrogen 16, Creatinine 1.0, Estimat Glomerular Filtration Rate > 60, Glucose Level 151H, Calcium Level 8.7 Current Medications Medications (Trade) Dose Ordered Sig/Kathie Route PRN Reason Start Time Stop Time Status Last Admin Dose Admin Albuterol/ Ipratropium (Albuterol/ Ipratropium) 3 ml Q4H PRN HHN dyspnea 07/10/18 11:15 07/15/18 11:14 07/11/18 02:24 Dextrose (Dextrose 50%) 25 ml Q30M PRN IV Hypoglycemia 07/10/18 10:45 08/09/18 10:44 Dextrose (Dextrose 50%) 50 ml Q30M PRN IV Hypoglycemia 07/10/18 11:15 08/09/18 11:14 Heparin Sodium (Porcine) (Heparin 5000 units/ml) 5,000 units EVERY 12 HOURS SUBQ 07/10/18 21:00 08/09/18 20:59 07/11/18 08:43 Lorazepam (Ativan 2mg/ml 1ml) 0.5 mg Q4H PRN IV For Anxiety 07/10/18 11:30 07/17/18 11:14 Methylprednisolone Sodium Succinate (Solu-MEDROL) 60 mg EVERY 6 HOURS IV 07/10/18 12:00 08/09/18 11:59 07/11/18 11:42 Morphine Sulfate (Morphine Sulfate) 2 mg Q4H PRN IVP severe pain 7-10 07/11/18 07:00 07/17/18 11:14 Nitroglycerin (Ntg) 0.4 mg Q5M X 3 DOSES PRN SL Prn Chest Pain 07/10/18 11:15 08/09/18 11:14 Ondansetron HCl (Zofran) 4 mg Q6H PRN IVP Nausea & Vomiting 07/10/18 11:15 08/09/18 11:14 Oxycodone/ Acetaminophen (Percocet 10/325) 1 tab Q6H PRN ORAL Severe Pain (Pain Scale 7-10) 07/11/18 07:00 07/18/18 06:59 07/11/18 11:46 Piperacillin Sod/ Tazobactam Sod 3.375 gm/Sodium Chloride 110 ml @ 27.5 mls/hr EVERY 8 HOURS IVPB 07/10/18 14:00 07/15/18 13:59 07/11/18 05:51 Promethazine HCl/ Codeine (Phenergan with Codeine) 5 ml Q6H PRN ORAL cough 07/10/18 11:15 08/09/18 11:14 07/11/18 02:44 Temazepam (Restoril) 15 mg HSPRN PRN ORAL Insomnia 07/10/18 21:00 07/17/18 20:59 07/11/18 00:12 Theophylline (Eddie-Dur) 100 mg EVERY 12 HOURS ORAL 07/10/18 21:00 08/09/18 20:59 07/11/18 08:41 Cynthia Lowery MD July 11, 2018 12:11
--- NOTE | 2018-07-11 12:53 | NUR ---
DISCHARGE ORDER: Pt recvd discharge order, patient informed, pt recieved prescriptions Mehylpredinosolone 4mg dspk, theophylline 100mg, and bactrim, the prescription was faxed to [facility], called family to inform of discharge, will need taxi to go home. Will start filling out discharge paper work. Addendum: 07/11/18 at 1354 by CRISTOBAL NIELSON RN Removed ID band and IV, pharmacy delivered 2 medications but did not deliver theopholline, pt will go to her own pharmacy to fill it. will get taxi voucher so she can go home Addendum: 07/11/18 at 1432 by CRISTOBAL NIELSON RN Pt was walked down to lobby and left in a taxi home
--- NOTE | 2018-07-12 20:28 | Cardiology Report ---
APPROVED REPORT EKG Measurement Heart [id number] Normal sinus rhythm Possible Left atrial enlargement Left ventricular hypertrophy Cannot rule out Septal infarct, age undetermined Abnormal ECG
--- NOTE | 2018-07-14 15:16 | Discharge Summary ---
Discharge Summary Discharge Summary _ DATE OF ADMISSION: 07/10/2018 DATE OF DISCHARGE: 06/22 17 DISCHARGED BY: Dr. Tucker REASON FOR ADMISSION: 63 years old female with past medical history of COPD , history of cocaine abuse , chronic back pain , presented to emergency department with complaint of shortness of breath and cough. She reported increased phlegm production. She denied fever and chills. She denied nausea and vomiting. She denied recent travel. Upon evaluation in emergency department , patient was diagnosed with acute COPD exacerbation and was admitted for further management. CONSULTANTS: pulmonary Dr. Lowery [facility]RSE: Patient admitted to telemetry floor. Supplemental oxygen provided to keep pulse oximetry above 90%. Pulmonary toilet with bronchodilator via handheld nebulizing therapy provided around the clock and as needed. Patient was started on intravenous steroids with gradual tapering down. Patient was started on empiric antibiotic. Blood cultures negative. Patient did not provide any sputum culture. No fevers, no leukocytosis CXR revealed cardiomegaly. No acute cardiopulmonary pathology. Trial of theophylline started . Antitussive provided as needed. DVT prophylaxis provided. Pain management was addressed, and pain was controlled. Troponin was negative. Pro BNP 26. Telemetry demonstrated sinus rhythm. Pulse oximetry was stable on room air. Patient was counseled to continue abstinence from illicit street drugs. Patient clinically improved and was ready for discharge home on Medrol Dosepak and antibiotic to complete the course. Due to rapid and unexpected improvement in patient condition, patient was discharged in 1 day. FINAL DIAGNOSES: COPD with acute exacerbation Acute bronchitis Cocaine abuse Chronic back pain due to spondylosis of the lumbar spine DISCHARGE MEDICATIONS: See Medication Reconciliation list. DISCHARGE INSTRUCTIONS: Patient was discharged home. Follow up with primary care provider in one week. I have been assigned to dictate discharge summary for this account. I was not involved in the patient's management. Maida Garcia NP July 14, 2018 15:16
== END 2018-07-11 14:32 | disposition home or self-care (01) | DRG 140 ==
LOC: EMR 09:11 → EDBEDREQ 09:32 → EDBEDREQTM 09:33 → 2E 10:10 → EDBEDREQ 10:37
DX: J44.0 Chronic obstructive pulmonary disease with (acute) lower respiratory infection (principal); F14.10 Cocaine abuse, uncomplicated; J20.9 Acute bronchitis, unspecified; J44.1 Chronic obstructive pulmonary disease with (acute) exacerbation; G89.29 Other chronic pain; M47.896 Other spondylosis, lumbar region
CPT/HCPCS: 36415; 71045; 80048; 80053; 82550; 82553; 82962; 83880; 84484; 85025; 87040; 93005; 94640; 94664; 96374; 99285; J7620

== ENCOUNTER 2018-11-22 09:09 | Emergency (ER) | payer MEDICAID, OTHER ==
[~2018-11-22] VITALS: Ht 167.6 cm; Wt 49.9 kg
[~2018-11-22 09:09] MED LIST changes: +AMLODIPINE BESY10 MG ORAL; +BACTRIM 400-801 EACH ORAL; +MEDROL DOSEPAK4 MG ORAL; +THEOPHYLLINE A100 MG ORAL
[2018-11-22 09:12] VITALS: BP 149/94
--- NOTE | 2018-11-22 09:20 | NUR ---
ED Nurse Note: Patient walked into ED from home c/o Right lower queadrant abdominal/flank pain for 1 week. patient denies any nausea, vomiting, or diarrhea. patient is alert awake x4 ambulatory without assistance, breathing unlabored and even, speaking in full sentences. patient provided urine sample. patient changed in a hospital gown. Warm blankets and pillow provided as requested. Call light within reach.
--- NOTE | 2018-11-22 09:41 | Emergency Room Report ---
History of Present Illness General Chief Complaint: Abdominal Pain Source: Patient, Medical Record Present Illness HPI Patient is a 63-year-old female who presents after increased right-sided abdominal pain. She reports having prior history of COPD. She reports having some recent use of steroids as well as inhalers due to COPD. She has somewhat chronic cough. She states that she has been having increased pain to the right lower abdomen associated with decreased bowel movements. She denies any vomiting. Allergies: Coded Allergies: No Known Allergies (Unverified , 11/12/13) Patient History Past Medical History: see triage record Last Menstrual Period: menopause Reviewed Nursing Documentation: PMH: Agreed; PSxH: Agreed Nursing Documentation-PMH Past Medical History: No History, Except For Hx Cardiac Problems: No - Chronic Arthritis Hx Hypertension: Yes Hx Pacemaker: No Hx Asthma: Yes Hx COPD: Yes Hx Diabetes: No Hx Cancer: No Hx Gastrointestinal Problems: No Hx Dialysis: No Hx Neurological Problems: Yes - spinal stenosis Hx Cerebrovascular Accident: No Hx Seizures: No Review of Systems All Other Systems: negative except mentioned in HPI Physical Exam Vital Signs Date Time Temp Pulse Resp B/P (MAP) Pulse Ox O2 Delivery O2 Flow Rate FiO2 11/22/18 09:12 98.8 74 18 149/94 (112) 96 Room Air Sp02 EP Interpretation: reviewed, normal General Appearance: normal inspection, alert, GCS 15, non-toxic, thin, Chronically Ill Head: atraumatic ENT: normal ENT inspection, hearing grossly normal, normal voice Neck: normal inspection, full range of motion, supple, no bony tend Respiratory: normal inspection, no respiratory distress, no retraction, speaking full sentences, wheezing Cardiovascular #1: regular rate, rhythm, no edema Gastrointestinal: normal inspection, normal bowel sounds, soft, no guarding, tenderness - suprapubic Genitourinary: no CVA tenderness Musculoskeletal: normal inspection, back normal, normal range of motion Neurologic: normal inspection, alert, oriented x3, responsive, production quality analyst III-XII nml as tested, speech normal Psychiatric: normal inspection, judgement/insight normal, mood/affect normal Medical Decision Making Diagnostic Impression: Primary Impression: COPD (chronic obstructive pulmonary disease) Qualified Codes: J44.9 - Chronic obstructive pulmonary disease, unspecified Additional Impressions: Urinary tract infection Qualified Codes: N30.00 - Acute cystitis without hematuria Cocaine abuse ER Course Patient presented for abdominal pain. Differential diagnosis included was not limited to gastroenteritis, appendicitis, perforated viscous, abdominal aortic aneurysm, torsion, cholecystitis, colitis, bowel obstruction among others. Patient was placed in the examination room and evaluated by me immediately. Patient was checked periodically to assure stability and response to treatment. Because of patient's complexity imaging studies, and laboratory testing were ordered. Laboratory testing showed some evidence of mild urinary infection. Posterior direction was also positive for cocaine. CT imaging of the abdomen pelvis read by radiology showed no evidence of acute obstructive pattern see radiology report for full details. The patient was given IV fluids as well, pain medications. Patient was noted to have some wheezing and was given breathing treatment. She was not noted to be hypoxic. Patient was given some medications for pain and was not given narcotic pain medications due to COPD and cocaine abuse. Patient appears to be stable for close outpatient follow up. Patient was advised to follow-up with her primary care physician for recheck. She is given prescription for antibiotics due to a urinary infection. She is advised to return if worse. Labs Test 11/22/18 09:40 White Blood Count 11.1 K/UL (4.8-10.8) Red Blood Count 5.37 M/UL (4.20-5.40) Hemoglobin 14.0 G/DL (12.0-16.0) Hematocrit 44.3 % (37.0-47.0) Mean Corpuscular Volume 82 FL (80-99) Mean Corpuscular Hemoglobin 26.0 PG (27.0-31.0) Mean Corpuscular Hemoglobin Concent 31.6 G/DL (32.0-36.0) Red Cell Distribution Width 12.4 % (11.6-14.8) Platelet Count 462 K/UL (150-450) Mean Platelet Volume 5.2 FL (6.5-10.1) Neutrophils (%) (Auto) 76.7 % (45.0-75.0) Lymphocytes (%) (Auto) 11.0 % (20.0-45.0) Monocytes (%) (Auto) 9.1 % (1.0-10.0) Eosinophils (%) (Auto) 2.2 % (0.0-3.0) Basophils (%) (Auto) 0.9 % (0.0-2.0) Urine Color Yellow Urine Appearance Slightly cloudy Urine pH 7 (4.5-8.0) Urine Specific Randle 1.010 (1.005-1.035) Urine Protein 1+ (NEGATIVE) Urine Glucose (UA) Negative (NEGATIVE) Urine Ketones Negative (NEGATIVE) Urine Blood Negative (NEGATIVE) Urine Nitrite Negative (NEGATIVE) Urine Bilirubin Negative (NEGATIVE) Urine Urobilinogen 4 MG/DL (0.0-1.0) Urine Leukocyte Esterase 3+ (NEGATIVE) Urine RBC 0-2 /HPF (0 - 2) Urine WBC 5-10 /HPF (0 - 2) Urine Squamous Epithelial Cells Moderate /LPF (NONE/OCC) Urine Bacteria Few /HPF (NONE) Sodium Level 142 MMOL/L (136-145) Potassium Level 3.9 MMOL/L (3.5-5.1) Chloride Level 105 MMOL/L (98-107) Carbon Dioxide Level 29 MMOL/L (21-32) Anion Gap 8 mmol/L (5-15) Blood Urea Nitrogen 16 mg/dL (7-18) Creatinine 1.0 MG/DL (0.55-1.30) Estimat Glomerular Filtration Rate > 60 mL/min (>60) Glucose Level 111 MG/DL (74-106) Calcium Level 8.7 MG/DL (8.5-10.1) Total Bilirubin 0.3 MG/DL (0.2-1.0) Aspartate Amino Transf (AST/SGOT) 16 U/L (15-37) Alanine Aminotransferase (ALT/SGPT) 19 U/L (12-78) Alkaline Phosphatase 63 U/L (46-116) Total Protein 7.4 G/DL (6.4-8.2) Albumin 3.2 G/DL (3.4-5.0) Globulin 4.2 g/dL Albumin/Globulin Ratio 0.8 (1.0-2.7) Lipase 72 U/L (73-393) Urine Opiates Screen Negative (NEGATIVE) Urine Barbiturates Screen Negative (NEGATIVE) Phencyclidine (PCP) Screen Negative (NEGATIVE) Urine Amphetamines Screen Negative (NEGATIVE) Urine Benzodiazepines Screen Negative (NEGATIVE) Urine Cocaine Screen Positive (NEGATIVE) Urine Marijuana (THC) Screen Negative (NEGATIVE) Last Vital Signs Date Time Temp Pulse Resp B/P (MAP) Pulse Ox O2 Delivery O2 Flow Rate FiO2 11/22/18 09:28 74 18 Room Air 11/22/18 09:12 98.8 149/94 96 Status: improved Disposition: HOME, SELF-CARE Condition: Stable Scripts Ibuprofen* (MOTRIN*) 600 Mg Tablet 600 MG ORAL Q8H PRN for For Pain, #30 TAB 0 Refills Prov: Pablo Moralez MD 11/22/18 Trimethoprim/Sulfamethoxazole 160/800* (BACTRIM DS TABLET*) 1 Each Tablet 1 TAB ORAL Q12H, #14 TAB 0 Refills Prov: Pablo Moralez MD 11/22/18 Referrals: NON PHYSICIAN (PCP) Pablo Moralez MD Nov 22, 2018 09:41
[2018-11-22] MEDS ORDERED: Fleet's Mineral Oil Enema RECTAL ONE (09:45)
[2018-11-22] MEDS ORDERED: Albuterol/Ipratropium 3ml neb HHN ONE (09:45)
[2018-11-22] MEDS ORDERED: Omnipaque-300 100ml vial INJ PRN (09:45)
[2018-11-22 09:57] LABS: BASOPHILS % (AUTO) 0.9 % (0.0-2.0); EOSINOPHILS % (AUTO) 2.2 % (0.0-3.0); HEMATOCRIT 44.3 % (37.0-47.0); MEAN CORPUSCULAR VOLUME 82 FL (80-99); MONOCYTES % (AUTO) 9.1 % (1.0-10.0); NEUTROPHILS % (AUTO) 76.7 % (45.0-75.0); PLATELET COUNT 462 K/UL (150-450); RED BLOOD COUNT 5.37 M/UL (4.20-5.40); RED CELL DISTRIBUTION WIDTH 12.4 % (11.6-14.8); WHITE BLOOD COUNT 11.1 K/UL (4.8-10.8)
[2018-11-22 09:58] LABS: APPEARANCE,URINE SLIGHTLY CLOUDY; BILIRUBIN, URINE NEGATIVE (NEGATIVE); COLOR,URINE YELLOW; GLUCOSE, URINE (UA) NEGATIVE (NEGATIVE); KETONES,URINE NEGATIVE (NEGATIVE); LEUKOCYTE ESTERASE ,URINE 3+ (NEGATIVE); NITRITE,URINE NEGATIVE (NEGATIVE); PH,URINE 7 (4.5-8.0); PROTEIN,URINE 1+ (NEGATIVE); UROBILINOGEN,URINE 4 MG/DL (0.0-1.0)
--- NOTE | 2018-11-22 10:00 | NUR ---
ED Nurse Note: RT AT BEDSIDE
[2018-11-22 10:03] LABS: ANION GAP 8 mmol/L (5-15); BLOOD UREA NITROGEN 16 mg/dL (7-18); CALCIUM 8.7 MG/DL (8.5-10.1); CARBON DIOXIDE 29 MMOL/L (21-32); CHLORIDE 105 MMOL/L (98-107); POTASSIUM 3.9 MMOL/L (3.5-5.1); SODIUM 142 MMOL/L (136-145)
[2018-11-22 10:07] LABS: ALANINE AMINOTRANSFERASE 19 U/L (12-78); ALBUMIN 3.2 G/DL (3.4-5.0); ALBUMIN/GLOBULIN RATIO 0.8 (1.0-2.7); ALKALINE PHOSPHATASE 63 U/L (46-116); ASPARTATE AMINO TRANSFERASE 16 U/L (15-37); BILIRUBIN,TOTAL 0.3 MG/DL (0.2-1.0)
--- NOTE | 2018-11-22 10:19 | NUR ---
ED Nurse Note: Enema given as ordered. bedside commode provided in case. tissue provided. unable to scan the fleet's enema medication due to bardcode problem, DR. Moralez ok to give it.
--- NOTE | 2018-11-22 11:02 | NUR ---
ED Nurse Note: patient went to CT
[2018-11-22] MEDS ORDERED: cefTRIAXone 1 GM in NS 55 ML IVPB ONE (11:15)
--- NOTE | 2018-11-22 11:20 | NUR ---
ED Nurse Note: PT BACK FROM CT VIA VIKTORIYA.
--- NOTE | 2018-11-22 11:39 | Diagnostic Imaging Report ---
Indication: Abdominal pain Technique: Continuous helical transaxial imaging of the abdomen and pelvis was obtained from the lung bases to the pubic symphysis during intravenous contrast administration. Coronal 2-D reformats were also obtained. Study obtained in a Siemens sensation [address] Automatic Exposure Control was utilized. Total Dose length Product (DLP): [address] Dose Index Volume (CTDIvol): 23.6 mGy Comparison: None Findings: There is mild bronchiectasis within the perihilar and basilar aspects of the lung. Some mild reticular densities and groundglass opacities noted probably chronic. There is a small pneumatocele posterior right lung base. There is a small cyst within the caudate lobe of the liver. The liver appears hypodense consistent with fatty infiltration. There is no hydronephrosis. The right kidney is malrotated. There is a moderate amount of fecal retention within the colon. The uterus is heterogeneous. There is a prominent mass likely a fibroid measuring about 3 cm. This is on the left side of the uterus. On the right side there is another mass 4 cm in size likely fibroid. Bowel gas pattern is nonobstructive. Appendix is not definitely seen but there are no secondary signs of acute appendicitis appreciated. Aortoiliac calcifications noted. Gallbladder is unremarkable. There is no biliary ductal dilatation appreciated. There is no adrenal mass. Moderate degenerative disc disease demonstrated at L2-3 with endplate osteophyte formation and minimal retrolisthesis. Multilevel facet arthropathy noted. IMPRESSION: Moderate fecal retention. Hiatal hernia Liver cyst Malrotated right kidney Multiple uterine fibroids. Chronic disease at the lung bases Degenerative changes of the spine as described above. Atherosclerotic vascular disease The CT scanner at [facility] is accredited by the [employer] and the scans are performed using dose optimization techniques as appropriate to a performed exam including Automatic Exposure control.
[2018-11-22] MEDS ORDERED: IBUPROFEN600 MG ORAL (11:44)
[2018-11-22] MEDS ORDERED: BACTRIM DS TAB1 EAC1 ORAL (11:44)
--- NOTE | 2018-11-22 11:45 | NUR ---
ED Nurse Note: Dr. Patrick stated that it's ok for the patient to eat. lunch tray provided as ordered.
[2018-11-22 12:19] VITALS: BP 149/94
--- NOTE | 2018-11-22 12:21 | NUR ---
ER DISCHARGE NOTE: Patient is cleared to be discharged per ERMD DR GILMAN, pt is aox4, on room air, with stable vital signs. pt was given dc and prescription instructions, pt was able to verbalize understanding, pt id band and iv site removed without complications. pt is able to ambulate with steady gait. pt took all belongings.
--- NOTE | 2018-12-02 17:24 | Cardiology Report ---
APPROVED REPORT EKG Measurement Heart [id number] Normal sinus rhythm Possible Left atrial enlargement Left ventricular hypertrophy Cannot rule out Septal infarct, age undetermined Abnormal ECG
== END 2018-11-22 12:19 | disposition home or self-care (01) ==
LOC: EMR 09:30
DX: N30.00 Acute cystitis without hematuria (principal); J44.9 Chronic obstructive pulmonary disease, unspecified; F14.10 Cocaine abuse, uncomplicated; I10 Essential (primary) hypertension; M19.90 Unspecified osteoarthritis, unspecified site; M48.00 Spinal stenosis, site unspecified; Z79.51 Long term (current) use of inhaled steroids
CPT/HCPCS: 36415; 74177; 80053; 80307; 81003; 83690; 85025; 93005; 94640; 94664; 96365; 96367; 96375; J0696; J2405; Q9967; Z7502; 99284; J7620

== ENCOUNTER 2019-05-27 03:21 | Emergency (ER) | payer MEDICAID ==
[~2019-05-27] VITALS: Ht 167.6 cm; Wt 49.9 kg
[2019-05-27] MEDS ORDERED: Albuterol ud Inhalation HHN ONE (03:30)
[2019-05-27] MEDS ORDERED: Morphine Sulfate 2mg/ml Inj(IV/IM USE ONLY) IM ONE (03:30)
--- NOTE | 2019-05-27 03:30 | NUR ---
ED Nurse Note: Recieved pt from home, here with c/o severe pain to right flank area, pt gowned and noted wityh shingle like rash to area, states has been there for past 2 days, denies fevers and also asking for breathing treatment, pt also admits to smoking cocaine "a little bit", denies cp, will resume care as ordered and closely monitor.
--- NOTE | 2019-05-27 03:35 | Emergency Room Report ---
History of Present Illness General Chief Complaint: To Be Triaged Source: Patient, Medical Record Present Illness HPI This a 64-year-old female with history of COPD and cocaine abuse patient presents with chief complaint of abdominal pain. Pain is to the right upper quadrant. She noticed a rash yesterday. Pain is sharp in nature. Pain is 10 out of 10. [place] nauseous but no vomiting. No diarrhea. No trauma. Also has a history of COPD which is chronic. She is felt short of breath because of the pain. Denies any fever or chills. Denies any productive sputum. Allergies: Coded Allergies: No Known Allergies (Unverified , 05/27/19) Patient History Past Medical History: see triage record, old chart reviewed Past Surgical History: none Pertinent Family History: none Social History: Reports: smoking, drug use Immunizations: other Reviewed Nursing Documentation: PMH: Agreed; PSxH: Agreed Nursing Documentation-PMH Hx Cardiac Problems: No - Chronic Arthritis Hx Hypertension: Yes Hx Pacemaker: No Hx Asthma: Yes Hx COPD: Yes Hx Diabetes: No Hx Cancer: No Hx Gastrointestinal Problems: No Hx Dialysis: No Hx Neurological Problems: Yes - spinal stenosis Hx Cerebrovascular Accident: No Hx Seizures: No Review of Systems Eye: Denies: eye pain, blurred vision ENT: Denies: ear pain, nose congestion, throat swelling Respiratory: Reports: cough, shortness of breath Cardiovascular: Denies: chest pain, palpitations Gastrointestinal: Reports: abdominal pain; Denies: diarrhea, nausea, vomiting Musculoskeletal: Denies: back pain, joint pain Skin: Denies: rash Neurological: Denies: headache, numbness Endocrine: Denies: increased thirst, increased urine Hematologic/Lymphatic: Denies: easy bruising All Other Systems: negative except mentioned in HPI Physical Exam Vitals with htn Sp02 EP Interpretation: reviewed, normal General Appearance: no apparent distress, alert, thin Head: normocephalic, atraumatic Eyes: bilateral eye PERRL, bilateral eye EOMI ENT: hearing grossly normal, normal pharynx Neck: full range of motion, supple, no meningismus Respiratory: chest non-tender, lungs clear, normal breath sounds, decreased breath sounds Cardiovascular #1: regular rate, rhythm, no murmur Gastrointestinal: normal bowel sounds, non tender, no mass, no organomegaly, no bruit, non-distended, other - Vesicular rash at the T6 distribution on right Musculoskeletal: back normal, normal range of motion, gait/station normal Psychiatric: mood/affect normal Medical Decision Making Diagnostic Impression: Primary Impression: Shingles Qualified Codes: B02.9 - Zoster without complications Additional Impressions: COPD with acute exacerbation Cocaine abuse Hypertension Qualified Codes: I10 - Essential (primary) hypertension ER Course Patient presents with abdominal pain secondary to shingles. No dissemination. Will discharge home. Status: improved Disposition: HOME, SELF-CARE Condition: Stable Scripts Hydrocodone Bit/Acetaminophen 5-325* (NORCO 5-325 TABLET*) 1 Each Tablet 1 TAB ORAL Q6H PRN for FOR PAIN, #12 TAB 0 Refills Prov: Stefan Mendoza MD 05/27/19 Valacyclovir Hcl* (VALTREX*) 500 Mg Tablet 1000 MG ORAL THREE TIMES A DAY for 7 Days, TAB 0 Refills Prov: Stefan Mendoza MD 05/27/19 Prednisone* (PREDNISONE*) 20 Mg Tablet 60 MG ORAL DAILY, #18 TAB Prov: Stefan Mendoza MD 05/27/19 Additional Instructions: Follow-up with your doctor in 7 days. Abstain from drugs and alcohol. Return if symptoms worsen. Stefan Mendoza MD May 27, 2019 03:35
[2019-05-27] MEDS ORDERED: Morphine Sulfate 4mg/ml Inj (IV USE ONLY) ONE (03:37)
[2019-05-27] MEDS ORDERED: NORCO 5-325 TA1 EAC1 ORAL (03:38)
[2019-05-27] MEDS ORDERED: PREDNISONE20 MG ORAL (03:38)
[2019-05-27] MEDS ORDERED: VALTREX500 MG ORAL (03:38)
[2019-05-27 04:00] VITALS: BP 159/93
--- NOTE | 2019-05-27 04:00 | NUR ---
ER DISCHARGE NOTE: Patient is cleared to be discharged per ERMD, pt is aox4, on room air, with stable vital signs. pt was given dc and prescription instructions, pt was able to verbalize understanding, pt id band removed without complications. pt is able to ambulate with steady gait. pt took all belongings.pt with daughter present to drive.
== END 2019-05-27 04:00 | disposition home or self-care (01) ==
LOC: EMR 04:00
DX: B02.9 Zoster without complications (principal); J44.1 Chronic obstructive pulmonary disease with (acute) exacerbation; F14.10 Cocaine abuse, uncomplicated; I10 Essential (primary) hypertension; F17.200 Nicotine dependence, unspecified, uncomplicated
CPT/HCPCS: 96372; J2270; J7512; Z7502; 99284

== ENCOUNTER 2019-08-14 21:07 | Inpatient (IN) | payer MEDICAID ==
[~2019-08-14] VITALS: Ht 170.2 cm; Wt 49.4 kg
[~2019-08-14 21:07] MED LIST changes: +NORCO 5-325 TA1 EAC1 ORAL; +PREDNISONE20 MG ORAL; +VALTREX500 MG ORAL
--- NOTE | 2019-08-14 21:29 | NUR ---
ED Nurse Note: pt presents to ED from home c/o dizziness onset this AM. pt reports that she is compliant with all her meds, BP is currently 124/73. pt states that she feels dizzy on her feet and has a 9/10 WALTER. she is also asking for a breathing treatment and is c/o back pain that is a chronic problem for her. Addendum: 08/14/19 at 2149 by QLE pt reports falling 2x today when she tried to get up due to the dizziness
[2019-08-14 21:31] VITALS: BP 113/93
--- NOTE | 2019-08-14 21:37 | Emergency Room Report ---
History of Present Illness General Chief Complaint: Dizziness Source: Patient Present Illness HPI Patient presents with complaints of dizziness reports that is been ongoing since this morning patient also reports that she has Lumbar spine stenosis and has continued pain from that Denies any chest pain she does have a history of COPD And reports chronic shortness of breath sensation Denies any vomiting denies any fevers or chills patient feels that standing up is worsening her symptoms she is also developed a Headache with the dizziness denies any focal weakness denies any neck pain or photophobia Allergies: Coded Allergies: No Known Allergies (Unverified , 05/27/19) COVID-19 Screening Contact w/high risk pt: No Recent Travel to affected area: No Experienced COVID-19 symptoms?: No COVID-19 Testing performed DIRECTOR OF OPERATIONS SUPPORT: No Patient History Past Medical History: see triage record Now: No Reviewed Nursing Documentation: PMH: Agreed; PSxH: Agreed Nursing Documentation-PMH Past Medical History: No History, Except For Hx Cardiac Problems: No Hx Hypertension: Yes Hx Pacemaker: No Hx Asthma: No Hx COPD: Yes Hx Diabetes: No Hx Cancer: No Hx Gastrointestinal Problems: No Hx Dialysis: No History Of Psychiatric Problem: No Hx Neurological Problems: No Hx Cerebrovascular Accident: No Hx Seizures: No Review of Systems All Other Systems: negative except mentioned in HPI Physical Exam Vital Signs Date Time Temp Pulse Resp B/P (MAP) Pulse Ox O2 Delivery O2 Flow Rate FiO2 08/14/19 21:09 96.8 76 24 113/93 (100) 90 Room Air Sp02 EP Interpretation: reviewed, normal General Appearance: well appearing, no apparent distress Head: normocephalic, atraumatic Eyes: bilateral eye PERRL, bilateral eye EOMI ENT: hearing grossly normal, normal pharynx, TMs + canals normal, uvula midline Neck: full range of motion, supple, no meningismus, no bony tend Respiratory: no rhonchi, no respiratory distress, no retraction, no accessory muscle use, crackles - Fine crackles in both lower lobes Cardiovascular #1: normal peripheral pulses, regular rate, rhythm, no edema, no gallop, no JVD, no murmur Gastrointestinal: normal bowel sounds, non tender, soft, no mass, no organomegaly, non-distended, no guarding, no hernia, no pulsatile mass, no rebound Genitourinary: no CVA tenderness Musculoskeletal: normal inspection Neurologic: motor strength/tone normal, head grower III-XII nml as tested, oriented x3 , sensory intact, responsive Psychiatric: mood/affect normal Skin: no rash Lymphatic: normal inspection, no adenopathy Medical Decision Making ER Course Patient is a fairly complex patient with multiple differential to consideration including but not limited to cardiac cardiopulmonary and vascular emergencies, other differential such as intracranial and neurological process entertained patient has CT head and baseline blood work Initiated with further IV hydration Last Vital Signs Date Time Temp Pulse Resp B/P (MAP) Pulse Ox O2 Delivery O2 Flow Rate FiO2 08/14/19 21:31 96.8 24 113/93 90 Room Air 08/14/19 21:31 76 Status: improved Signed Out To: Patient signed out to my oncoming physician for further evaluation and disp Bony Hart DO Aug 14, 2019 21:37
[2019-08-14] MEDS ORDERED: Ketorolac 30mg Inj IV ONE (21:45)
--- NOTE | 2019-08-14 21:49 | NUR ---
ED Nurse Note: pt unable to provide urine sample at this time, being taken to CT
--- NOTE | 2019-08-14 22:07 | Diagnostic Imaging Report ---
EXAM: CT Head Without Intravenous Contrast CLINICAL HISTORY: DIZZY TECHNIQUE: Axial computed tomography images of the head/brain without intravenous contrast. CTDI is 53 mGy and DLP is 1019 mGy-cm. One or more of the following dose reduction techniques were used: automated exposure control, adjustment of the mA and/or kV according to patient size, use of iterative reconstruction technique. COMPARISON: No relevant prior studies available. FINDINGS: Brain: High right parietal peripheral likely extraaxial 0.8cm hyperattenuating focus could represent a mass, although extra-axial hemorrhage could also have this appearance. No mass effect. Linear 1.1 cm in length, 1 cm in height, thin hyperdensity in the region of the right frontoparietal subcortical white matter axial series 7 image 17 of uncertain significance. Although this would be an atypical presentation, this could represent intraparenchymal hemorrhage. Alternatively, this could represent subarachnoid hemorrhage within a poorly delineated sulcus. No mass effect. Recommend MRI brain without and with IV contrast to further characterize this finding. Otherwise no acute intracranial abnormality. Otherwise unremarkable parenchymal morphology and attenuation. Ventricles: Unremarkable CSF structures. Bones/joints: Unremarkable. No acute fracture. Soft tissues: Unremarkable. Sinuses: Unremarkable as visualized. No acute sinusitis. Mastoid air cells: Unremarkable as visualized. No mastoid effusion. IMPRESSION: 1. High right parietal peripheral likely extraaxial 0.8cm hyperattenuating focus could represent a mass, although extra-axial hemorrhage could also have this appearance. No mass effect. 2. Linear 1.1 cm in length, 1 cm in height, thin hyperdensity in the region of the right frontoparietal subcortical white matter axial series 7 image 17 of uncertain significance. Although this would be an atypical presentation, this could represent intraparenchymal hemorrhage. Alternatively, this could represent subarachnoid hemorrhage within a poorly delineated sulcus. No mass effect. 3. Recommend MRI brain without and with IV contrast to further characterize these findings. 4. Otherwise no acute intracranial abnormality. <MYCVCSECTION> Communications: 08/14/19 22:06 Call Doctor Regarding Intracranial Hemorrhage, called Bony Hart MD on 08/13 22:08 (-07:00)
[2019-08-14 22:11] LABS: HEMATOCRIT 45.2 % (37.0-47.0); MEAN CORPUSCULAR VOLUME 83 FL (80-99); PLATELET COUNT 290 K/UL (150-450); RED BLOOD COUNT 5.48 M/UL (4.20-5.40); RED CELL DISTRIBUTION WIDTH 14.4 % (11.6-14.8)
[2019-08-14] MEDS ORDERED: Solu-MEDROL 125mg Inj IVP ONE (22:15)
[2019-08-14] MEDS ORDERED: Omnipaque 350 100ml vial INJ PRN (22:15)
[2019-08-14] MEDS ORDERED: Azithromycin 500 MG in NS 275 ML IV ONE (22:15)
[2019-08-14] MEDS ORDERED: cefTRIAXone 1 GM in NS 55 ML IVPB ONE (22:15)
[2019-08-14] MEDS ORDERED: Gadavist 7.5mMol/7.5ml vial IV PRN (22:15)
[2019-08-14] MEDS ORDERED: Albuterol 90mcg Inhaler 8gm INH PRN (22:15)
[2019-08-14 22:25] LABS: ANION GAP 11 mmol/L (5-15); BLOOD UREA NITROGEN 14 mg/dL (7-18); CALCIUM 9.1 MG/DL (8.5-10.1); CARBON DIOXIDE 26 MMOL/L (21-32); CHLORIDE 98 MMOL/L (98-107); CREATININE 1.2 MG/DL (0.55-1.30); POTASSIUM 3.4 MMOL/L (3.5-5.1); SODIUM 135 MMOL/L (136-145)
[2019-08-14 22:36] LABS: ALANINE AMINOTRANSFERASE 31 U/L (12-78); ALBUMIN 3.9 G/DL (3.4-5.0); ALBUMIN/GLOBULIN RATIO 0.8 (1.0-2.7); ALKALINE PHOSPHATASE 64 U/L (46-116); ASPARTATE AMINO TRANSFERASE 35 U/L (15-37); BILIRUBIN,TOTAL 1.6 MG/DL (0.2-1.0); CREATINE KINASE 692 U/L (26-308)
[2019-08-14 22:37] LABS: BILIRUBIN,DIRECT 0.3 MG/DL (0.0-0.3)
[2019-08-14 23:30] VITALS: BP 110/90
--- NOTE | 2019-08-14 23:38 | NUR ---
ED Nurse Note: Pt to CT, urine sent to lab
[2019-08-14 23:53] LABS: APPEARANCE,URINE CLEAR; BILIRUBIN, URINE NEGATIVE (NEGATIVE); COLOR,URINE PALE YELLOW; GLUCOSE, URINE (UA) NEGATIVE (NEGATIVE); KETONES,URINE NEGATIVE (NEGATIVE); NITRITE,URINE NEGATIVE (NEGATIVE); PH,URINE 6 (4.5-8.0); PROTEIN,URINE 2+ (NEGATIVE); UROBILINOGEN,URINE NORMAL MG/DL (0.0-1.0)
[2019-08-15] VITALS (7 sets, daily range): BP systolic 105–129; BP diastolic 61–87
[2019-08-15 00:07] LABS: LEUKOCYTE ESTERASE ,URINE 1+ (NEGATIVE)
--- NOTE | 2019-08-15 00:07 | NUR ---
ED Nurse Note: Patient back from CT and placed on ekg monitor tech.
--- NOTE | 2019-08-15 00:20 | NUR ---
ED Nurse Note: Pt to MRI
--- NOTE | 2019-08-15 00:35 | Diagnostic Imaging Report ---
EXAM: CT Chest Without Intravenous Contrast CLINICAL HISTORY: DIZZY TECHNIQUE: Axial computed tomography images of the chest without intravenous contrast. CTDI is 4mGy and DLP is 253 mGy-cm. One or more of the following dose reduction techniques were used: automated exposure control, adjustment of the mA and/or kV according to patient size, use of iterative reconstruction technique. COMPARISON: No relevant prior studies available. FINDINGS: Limitations: Study limited due to lack of IV contrast. Lungs: Patchy right base groundglass opacities with nodular component measuring up to 2 cm probably represents pneumonia, although underlying neoplasm in this area cannot be definitively excluded. Scattered right apical nodularity measuring up to 0.5 cm is indeterminate, and can be followed on subsequent imaging. Pleural space: Unremarkable. No pneumothorax. No significant effusion. Heart: Unremarkable. No cardiomegaly. No significant pericardial effusion. Mediastinum: Small hiatal hernia. Bones/joints: Unremarkable. No acute fracture. No dislocation. Soft tissues: Unremarkable. Vasculature: Unremarkable. No thoracic aortic aneurysm. Lymph nodes: Unremarkable. No enlarged lymph nodes. IMPRESSION: 1 Study limited due to lack of IV contrast. 2 Patchy right base groundglass opacities with nodular component measuring up to 2 cm probably represents pneumonia, although underlying neoplasm in this area cannot be definitively excluded. 3 Recommend follow-up unenhanced CT chest in 3 months to document resolution. 4 Scattered right apical nodularity measuring up to 0.5 cm is indeterminate, and can be followed on subsequent imaging. 5. Small hiatal hernia. EXAM: CT Abdomen and Pelvis Without Intravenous Contrast CLINICAL HISTORY: DIZZY TECHNIQUE: Axial computed tomography images of the abdomen and pelvis without intravenous contrast. CTDI is 4mGy and DLP is 253 mGy-cm. One or more of the following dose reduction techniques were used: automated exposure control, adjustment of the mA and/or kV according to patient size, use of iterative reconstruction technique. Coronal and sagittal reformatted images were created and reviewed. COMPARISON: No relevant prior studies available. FINDINGS: Limitations: Study limited due to lack of IV contrast. Lung bases: Unremarkable. No mass. No consolidation. ABDOMEN: Liver: Unremarkable. Gallbladder and bile ducts: Unremarkable. No calcified stones. No ductal dilation. Pancreas: Unremarkable. No ductal dilation. Spleen: Unremarkable. No splenomegaly. Adrenals: Unremarkable. No mass. Kidneys and ureters: Unremarkable. No obstructing stones. No hydronephrosis. Stomach and bowel: Prominent colonic stool burden, which could be a cause for pain. Liquid small bowel contents could be incidental or could represent an infectious or inflammatory enteritis in the proper context. No obstruction. PELVIS: Appendix: No findings to suggest acute appendicitis. Bladder: Prominent urinary bladder size, which can be a cause for pain. No stones. Reproductive: Prominent uterus size for patient age, correlate with pelvic exam and consider outpatient pelvic ultrasound to further characterize if there is clinical concern. ABDOMEN and PELVIS: Intraperitoneal space: Unremarkable. No free air. No significant fluid collection. Bones/joints: Osteopenia and degenerative spine findings. No acute fracture. No dislocation. Soft tissues: Unremarkable. Vasculature: Unremarkable. No abdominal aortic aneurysm. Lymph nodes: Unremarkable. No enlarged lymph nodes. Other findings: ASVD. No acute abnormality identified. IMPRESSION: 1. Study limited due to lack of IV contrast. 2 No acute abnormality identified. 3 Prominent colonic stool burden, which could be a cause for pain. 4 Liquid small bowel contents could be incidental or could represent an infectious or inflammatory enteritis in the proper context. 5 Prominent urinary bladder size, which can be a cause for pain. 6. Prominent uterus size for patient age, correlate with pelvic exam and consider outpatient pelvic ultrasound to further characterize if there is clinical concern.
--- NOTE | 2019-08-15 01:12 | NUR ---
ED Nurse Note: Pt back from MRI
--- NOTE | 2019-08-15 01:37 | Diagnostic Imaging Report ---
EXAM: MR Head Without and With Intravenous Contrast CLINICAL HISTORY: DIZZY TECHNIQUE: Magnetic resonance images of the head/brain without and with intravenous contrast in multiple planes. COMPARISON: 08/14/2019 FINDINGS: Brain: No hemorrhage. No restricted diffusion. Chronic microvascular ischemic changes. There are 2 enhancing extra-axial lesions, one measuring 12 mm in the right parietal convexity and another one measuring 2.6 x 1.4 cm along the right temporal convexity. Ventricles: No hydrocephalus. Bones/joints: Unremarkable. Sinuses: Unremarkable. No acute sinusitis. Mastoid air cells: No effusion. Orbits: Unremarkable. IMPRESSION: 1. No acute infarct, hemorrhage, or hydrocephalus. 2. Two extra-axial heterogeneously enhancing lesions in the right temporal and parietal convexities. Presumably meningiomas although not classic based on enhancement pattern. No significant mass-effect or surrounding edema. Recommend follow-up in 3 months to document change in size and appearance.
--- NOTE | 2019-08-15 02:00 | Emergency Room Report ---
Physical Exam Vital Signs Date Time Temp Pulse Resp B/P (MAP) Pulse Ox O2 Delivery O2 Flow Rate FiO2 08/14/19 21:09 96.8 76 24 113/93 (100) 90 Room Air Sp02 EP Interpretation: reviewed, abnormal - Interpreted as low by me interpreted as low by me General Appearance: thin, Chronically Ill Head: normocephalic Eyes: bilateral eye other - Eyes closed ENT: moist mucus membranes Neck: full range of motion Respiratory: other - No respiratory distress Cardiovascular #1: normal inspection Genitourinary: deferred - See report by Dr. Lynch Neurologic: other - Sleeping Psychiatric: depressed affect Skin: no rash, other - See report by Dr. Lynch Medical Decision Making Diagnostic Impression: Primary Impression: Intracerebral mass Additional Impressions: Right lower lobe pulmonary infiltrate Cocaine abuse COPD (chronic obstructive pulmonary disease) Qualified Codes: J44.9 - Chronic obstructive pulmonary disease, unspecified ER Course Please see complete history and physical by Dr. Hart. Patient was signed out to me to review CT of the chest and MRI. White count with leukocytosis. Urine tox positive for cocaine. Slight hyponatremia and hypokalemia. CT of chest suggestive of possible infiltrate versus mass. Rocephin and azithromycin previously ordered. MRI reveals possible meningioma looking masses, however this is not definitive. Patient admitted to the hospital for further evaluation of intracerebral mass and treatment of the right lower lobe infiltrate. Laboratory Tests Test 08/14/19 21:43 08/14/19 23:30 White Blood Count 21.0 K/UL (4.8-10.8) H Red Blood Count 5.48 M/UL (4.20-5.40) H Hemoglobin 14.0 G/DL (12.0-16.0) Hematocrit 45.2 % (37.0-47.0) Mean Corpuscular Volume 83 FL (80-99) Mean Corpuscular Hemoglobin 25.5 PG (27.0-31.0) L Mean Corpuscular Hemoglobin Concent 30.9 G/DL (32.0-36.0) L Red Cell Distribution Width 14.4 % (11.6-14.8) Platelet Count 290 K/UL (150-450) Mean Platelet Volume 6.2 FL (6.5-10.1) L Neutrophils (%) (Auto) % (45.0-75.0) Lymphocytes (%) (Auto) % (20.0-45.0) Monocytes (%) (Auto) % (1.0-10.0) Eosinophils (%) (Auto) % (0.0-3.0) Basophils (%) (Auto) % (0.0-2.0) Differential Total Cells Counted 100 Neutrophils % (Manual) 82 % (45-75) H Lymphocytes % (Manual) 7 % (20-45) L Monocytes % (Manual) 6 % (1-10) Eosinophils % (Manual) 0 % (0-3) Basophils % (Manual) 0 % (0-2) Band Neutrophils 5 % (0-8) Platelet Estimate Adequate Platelet Morphology Normal Red Blood Cell Morphology Normal Sodium Level 135 MMOL/L (136-145) L Potassium Level 3.4 MMOL/L (3.5-5.1) L Chloride Level 98 MMOL/L (98-107) Carbon Dioxide Level 26 MMOL/L (21-32) Anion Gap 11 mmol/L (5-15) Blood Urea Nitrogen 14 mg/dL (7-18) Creatinine 1.2 MG/DL (0.55-1.30) Estimated Glomerular Filtration Rate 54.9 mL/min (>60) Glucose Level 136 MG/DL (74-106) H Calcium Level 9.1 MG/DL (8.5-10.1) Total Bilirubin 1.6 MG/DL (0.2-1.0) H Direct Bilirubin 0.3 MG/DL (0.0-0.3) Aspartate Amino Transferase (AST) 35 U/L (15-37) Alanine Aminotransferase (ALT) 31 U/L (12-78) Alkaline Phosphatase 64 U/L (46-116) Total Creatine Kinase 692 U/L (26-308) H Troponin I 0.003 ng/mL (0.000-0.056) Total Protein 8.5 G/DL (6.4-8.2) H Albumin 3.9 G/DL (3.4-5.0) Globulin 4.6 g/dL Albumin/Globulin Ratio 0.8 (1.0-2.7) L Urine Color Pale yellow Urine Appearance Clear Urine pH 6 (4.5-8.0) Urine Specific [place] 1.005 (1.005-1.035) Urine Protein 2+ (NEGATIVE) H Urine Glucose (UA) Negative (NEGATIVE) Urine Ketones Negative (NEGATIVE) Urine Blood 3+ (NEGATIVE) H Urine Nitrite Negative (NEGATIVE) Urine Bilirubin Negative (NEGATIVE) Urine Urobilinogen Normal MG/DL (0.0-1.0) Urine Leukocyte Esterase 1+ (NEGATIVE) H Urine RBC 2-4 /HPF (0 - 2) H Urine WBC 0-2 /HPF (0 - 2) Urine Squamous Epithelial Cells Moderate /LPF (NONE/OCC) H Urine Bacteria Few /HPF (NONE) Urine Opiates Screen Negative (NEGATIVE) Urine Barbiturates Screen Negative (NEGATIVE) Phencyclidine (PCP) Screen Negative (NEGATIVE) Urine Amphetamines Screen Negative (NEGATIVE) Urine Benzodiazepines Screen Negative (NEGATIVE) Urine Cocaine Screen Positive (NEGATIVE) H Urine Marijuana (THC) Screen Negative (NEGATIVE) Microbiology Date/Time Source Procedure Growth Status 08/14/19 22:30 Nasopharynx SARS-CoV-2 RdRp Gene Assay - Final Complete Rhythm Strip Diag. Results EP Interpretation: yes Rhythm: NSR, no PVC's, no ectopy Chest X-Ray Diagnostic Results Chest X-Ray Diagnostic Results : Chest X-Ray Ordered: Yes # of Views/Limited/Complete: 1 View Indication: Other EP Interpretation: Yes Interpretation: no effusion, no pneumothorax, other - COPD and right lower lobe infiltrate Impression: Other Electronically Signed by: Electronically signed by Richard Woodruff MD CT/MRI/US Diagnostic Results CT/MRI/US Diagnostic Results #1: Imaging Test Ordered: Chest and abdomen Impression 1 Study limited due to lack of IV contrast. 2 Patchy right base groundglass opacities with nodular component measuring up to 2 cm probably represents pneumonia, although underlying neoplasm in this area cannot be definitively excluded. 3 Recommend follow-up unenhanced CT chest in 3 months to document resolution. 4 Scattered right apical nodularity measuring up to 0.5 cm is indeterminate, and can be followed on subsequent imaging. 5. Small hiatal hernia. CT/MRI/US Diagnostic Results #2: Imaging Test Ordered: MRI Impression 1. No acute infarct, hemorrhage, or hydrocephalus. 2. Two extra-axial heterogeneously enhancing lesions in the right temporal and parietal convexities. Presumably meningiomas although not classic based on enhancement pattern. No significant mass-effect or surrounding edema. Recommend follow-up in 3 months to document change in size and appearance. Last Vital Signs Date Time Temp Pulse Resp B/P (MAP) Pulse Ox O2 Delivery O2 Flow Rate FiO2 08/14/19 22:10 96.8 08/14/19 21:31 24 113/93 90 Room Air 08/14/19 21:31 76 Status: improved Disposition: ADMITTED INPATIENT Condition: Serious Referrals: [facility],REFERRING (PCP) Richard Woodruff MD Aug 15, 2019 02:00
--- NOTE | 2019-08-15 02:29 | NUR ---
TRANSFER TO FLOOR: Patient transferred to as ordered, per DR Graves. Report given to MARIELA Bernal . Belongings and medications given to . Family and or S/O informed of transfer.
--- NOTE | 2019-08-15 03:53 | NUR ---
NURSE NOTES: Received patient report from DELMY Davenport RN. Patient was transported to telemetry floor without incident. Patient was put on tele monitor. Patient arrived sleeping. She is AO x 4. Shows no signs of distress or pain at the time. IV is patent and flushed. There are lung sounds are clear upon auscultation. Skin is intact. Bed was placed in the lowest position, call light within reach, side rails up x 3, and bed alarm on. Will continue to monitor.
--- NOTE | 2019-08-15 03:57 | NUR ---
NURSE NOTES: Called Dr. Graves for admitting orders. He said to continue ER medications.
[2019-08-15] MEDS ORDERED: Albuterol 90mcg Inhaler 8gm INH SCH (05:15)
[2019-08-15] MEDS ORDERED: valACYclovir HCL 500mg tab ORAL SCH (07:00)
--- NOTE | 2019-08-15 07:59 | NUR ---
HAND-OFF: Report given to MARIELA Murillo. Patient shows no signs of distress. Endorsed plan of ujstice
--- NOTE | 2019-08-15 08:00 | NUR ---
NURSE NOTES: recvd pt. Pt is AOX4, pt is on NC @ 2L with no sign of sob or resp distress. Pt is ambulatory with stand by assist. Pt has right FA 22g running 1/2NS @75ml/hr with no sign of infiltration c/d/i. 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 Bed in lowest locked pt, call light within reach, will continue with plan of care
[2019-08-15] MEDS: Theophylline ER 100mg ORAL SCH ×2 (08:40→21:50)
[2019-08-15] MEDS ORDERED: cefTRIAXone 2 GM in NS 55 ML IVPB SCH (09:00)
[2019-08-15] MEDS ORDERED: Solu-MEDROL 125mg Inj IVP ONE (09:00)
[2019-08-15] MEDS ORDERED: Solu-MEDROL 125mg Inj IVP SCH (10:00)
--- NOTE | 2019-08-15 10:13 | Diagnostic Imaging Report ---
Procedure: XRAY Chest 1v Reason for study: Chest pain. Comparison films: 07/10/2018. FINDINGS: A single one view chest is obtained. Vascularity is normal. There is right basilar infiltrate. Mild hazy densities also noted right upper lobe. Cardiac and mediastinal silhouette are within normal limits. CP angles are sharp. Aorta is tortuous. Bilateral nipple shadows noted. IMPRESSION: Right lung infiltrates.
--- NOTE | 2019-08-15 11:06 | NUR ---
*-*INSURANCE *-* ALL AVAILABLE CLINICALS HAVE BEEN FAXED TO: [facility] ONLY P: [phone] F: [phone] & BS [employer] AUTH#[id number] F: [phone]
--- NOTE | 2019-08-15 12:04 | NUR ---
CASE MANAGEMENT: REVIEW 64 YEAR OLD FEMALE CC: DIZZINESS . Hx COPD . COCAINE ABUSE SI: COVID-19 R/O . INTRACEREBRAL MASS . RIGHT LOWER LOBE PULMONARY INFILTRATE T 96.8 HR 76 RR 24 BP 113/93 SAT 90% ROOM AIR WBC 21.0 NA 135 K 3.4 TOTAL CR KINASE 692 COVID x1 NEG CXR -- RIGHT LUNG INFILTRATES CT CHEST -- PATCHY RIGHT BASE GROUND-GLASS OPACITIES WITH NODULAR COMPONENT MRI BRAIN -- TWO EXTRA-AXIAL HETEROGENEOUSLY ENHANCING LESIONS IS: MAG SULFATE IV X1 SOLU MEDROL IV X1 NS IVF BOLUS X1 AZITHROMYCIN IV X1 PATIENT ADMITTED TO TELEMETRY UNIT 08/14/2019 DCP: PATIENT IS FROM HOME
--- NOTE | 2019-08-15 12:05 | NUR ---
RD ASSESSMENT & RECOMMENDATIONS SEE CARE ACTIVITY FOR COMPLETE ASSESSMENT DAILY ESTIMATED NEEDS: Needs based on Underweight, COPD/ 45.5kg 30-35 kcals/kg 8766-5217 total kcals 1-1.5 g protein/kg 46-68 g total protein 25-30 mL/kg 1138 total fluid mLs NUTRITION DIAGNOSIS: Increased kcal/prot needs R/T underweight status, respiratory status as evidenced by pt at 77% IBW, underweight BMI per guidelines, h/o COPD. CURRENT DIET:Regular PO DIET RECOMMENDATIONS: REGULAR, texture as tolerated + snacks BID in b/w meals ADDITIONAL RECOMMENDATIONS: * Standing wt for accurate CBW -> Weekly wt monitoring given underweight status * Ensure BID + Snacks in b/w meals * Monitor BGs closely while on Solumedrol . .
[2019-08-15 16:28] LABS: HEMATOCRIT 37.2 % (37.0-47.0); MEAN CORPUSCULAR VOLUME 81 FL (80-99); PLATELET COUNT 273 K/UL (150-450); RED BLOOD COUNT 4.56 M/UL (4.20-5.40); RED CELL DISTRIBUTION WIDTH 14.8 % (11.6-14.8); WHITE BLOOD COUNT 21.6 K/UL (4.8-10.8)
[2019-08-15 16:29] LABS: BASOPHILS % (AUTO) 0.3 % (0.0-2.0); LYMPHOCYTES % (AUTO) 5.7 % (20.0-45.0); MONOCYTES % (AUTO) 3.4 % (1.0-10.0); NEUTROPHILS % (AUTO) 90.6 % (45.0-75.0)
[2019-08-15 16:41] LABS: ANION GAP 12 mmol/L (5-15); BLOOD UREA NITROGEN 23 mg/dL (7-18); CALCIUM 8.7 MG/DL (8.5-10.1); CARBON DIOXIDE 22 MMOL/L (21-32); CHLORIDE 104 MMOL/L (98-107); SODIUM 138 MMOL/L (136-145)
[2019-08-15] MEDS: HYDROcodone/Acetamin 5/325 tab ORAL PRN (17:37)
[2019-08-15] MEDS ORDERED: Albuterol ud Inhalation HHN SCH (19:00)
--- NOTE | 2019-08-15 19:45 | NUR ---
NURSE NOTES: Received pt from MARIELA Murillo. Pt is AOX4, pt is on 2 L O2 NC with no s/sx of sob nor respiratory distress. Pt is exhibiting signs of anxiety and agitation, is restless and is awaiting a breathing treatment. Pt is currently on nebulizer treatments per RT. Pt is ambulatory with stand by assist, strength 5/5 all extremities. Pt has right FA 22g patent, asymptomatic running 1/2NS @75ml/hr. Pt is on media monitor, NSR. Bed is locked, in lowest position, side rails x2, bed alarm on, fall precautions in place, call light within reach, will continue with plan of care
--- NOTE | 2019-08-15 19:50 | NUR ---
NURSE NOTES: Pain medication [place] administered on previous shift given at 1727. Pain reassessment done upon receipt of patient from previous shift at 1945. Patient reports a decrease in pain to a 3/10. Was not present at time of pain documentation reassessment at 1807. Performed pain assessment as soon as I received the patient.
--- NOTE | 2019-08-15 20:00 | History and Physical Report ---
DATE OF ADMISSION: 08/14/2019 HISTORY OF PRESENT ILLNESS: This is a 64-year-old female came with short of breath, hypoxia. Patient is NPO status to rule out COVID. Patient is in isolation. Complaining also back pain. PAST MEDICAL HISTORY: COPD, abdominal pain, UTI, pneumonia. MEDICATIONS: She is taking Norvasc, Zithromax, hydrocodone, prednisone, theophylline, albuterol inhaler. ALLERGIES: NKA. FAMILY HISTORY: Noncontributory. SOCIAL HISTORY: Lives at home. Quit smoking. Denies any illegal drugs. REVIEW OF SYSTEMS: Generalized weakness, tired, fatigue, weakness, and generalized weakness. Shortness of breath on exertion. OBJECTIVE: VITAL SIGNS: Blood pressure 107/66, pulse 88 to 59, respirations 20, temperature is 99.1, saturation 97%. HEENT: NAD. CHEST: Bilateral decreased breath sounds. CARDIOVASCULAR: Regular rhythm. No gallop. No murmur. ABDOMEN: Soft. Positive bowel sounds. Nontender. EXTREMITIES: No edema. GENITOURINARY: Deferred. LABORATORY DATA: White counts are 21,000, hemoglobin 14, hematocrit 45, platelets are 290. Chemistry panel, sodium 135, potassium 3.4, BUN 14, creatinine 1.2. CK is 692. Troponin 0.03. Her urine test 3+ blood, 1+ leukocyte esterase. Toxicology report positive for cocaine. Her brain MRI, no acute infarct or hydrocephalus enhancing lesion on the right temporal region. No significant mass effect or surrounding edema. ASSESSMENT: 1. Acute short of breath. Rule out COVID pneumonia. 2. Hypertension. 3. Chronic back pain. 4. Brain mass. PLAN: We will add azithromycin, ceftriaxone. Continue . Continue albuterol solution. Continue Decadron, Norvasc, prednisone, theophylline. Consider Cardiology and Pulmonary and ID consult. We will follow up her CBC result. White counts are high. Hiren Graves M.D. DR: VARUN JOB#: [id number] CC:
[2019-08-15] MEDS ORDERED: Albuterol 90mcg Inhaler 8gm INH PRN (20:45)
[2019-08-15] MEDS: valACYclovir HCL 500mg tab ORAL SCH (21:00)
[2019-08-15] MEDS ORDERED: Zolpidem 5mg tab ORAL PRN (21:55)
[2019-08-15] MEDS ORDERED: cefTRIAXone 1 GM in D5W 55 ML IVPB SCH (22:00)
[2019-08-15] MEDS ORDERED: Azithromycin 500 MG in D5W 275 ML IV SCH (22:00)
--- NOTE | 2019-08-15 22:00 | NUR ---
NURSE NOTES: Called and received order from Dr Graves to administer zolpidem 5 mg q hs prn, will input and carry out as was pt complaining of inability to sleep. Also nebulizer RT treatments changed to MDI to be admin by RN, as pt is rule out covid 19. Pt had one rapid CV 19 testing as confirmed as negative/not detected but a second longer acting swab was performed and is pending results.
--- NOTE | 2019-08-15 22:14 | Consultation ---
DATE OF CONSULTATION: 08/15/2019 PULMONARY CONSULTATION CONSULTING PHYSICIAN: Justin Izquierdo MD . REASON FOR CONSULTATION: COPD exacerbation. HISTORY OF PRESENT ILLNESS: This is a 64-year-old female who was admitted to the hospital with exacerbation of COPD. She came to the hospital with shortness of breath. The patient was found to have urine tox screen positivity. She is complaining of pain. She is complaining of headaches. She is complaining of cough. PAST MEDICAL HISTORY: Hypertension, COPD, substance abuse. HOME MEDICATIONS: Reviewed and reconciled in the chart. REVIEW OF SYSTEMS: Denies any headaches, hematemesis, melena, hematochezia, or weight loss. PHYSICAL EXAMINATION: GENERAL: Reveals a 64-year-old female. VITAL SIGNS: Blood pressure 114/60, heart rate respirations . She is afebrile. HEENT: Unremarkable. CHEST: Clear breath sounds. ABDOMEN: Soft. EXTREMITIES: There is no edema. LABORATORY DATA: Lab testing is unremarkable. Normal CBC and BMP with the exception of white count 21,000, potassium 3.4. IMAGING STUDIES: Obtained yesterday showed negative brain MRI. CT abdomen and pelvis is noncontributory. There is scattered right apical nodularity, which could represent old scarring. There are also imaging abnormalities noted in the right base. X-ray chest is essentially negative except for right lung infiltrate. These could represent old findings. IMPRESSION: 1. COPD with exacerbation. 2. Leukocytosis. 3. Substance abuse. DISCUSSION: Admit to the hospital. Discussed with Dr. Graves. The patient needs steroids, antibiotics. This can be managed as an outpatient. The patient is clinically well. Her COVID test is negative. Anticipate discharge in the next 24 hours. Justin Izquierdo M.D. DR: KEVIN JOB#: [id number] CC:
[2019-08-15] MEDS ORDERED: Azithromycin 500 MG in NS 275 ML IV SCH (23:00)
[2019-08-16] VITALS: BP 132/82
[2019-08-16] MEDS: HYDROcodone/Acetamin 5/325 tab ORAL PRN ×2 (03:49→10:42)
[2019-08-16 04:00] VITALS: BP 122/74
--- NOTE | 2019-08-16 06:52 | NUR ---
NURSE NOTES: Covid negative x 2. Results of second covid returned 'not detected.'
--- NOTE | 2019-08-16 06:56 | NUR ---
HAND-OFF: Report given to Judy SIERRA.
--- NOTE | 2019-08-16 07:07 | NUR ---
HAND-OFF: Report given to MARIELA Kim. NURSE NOTES: Endorsed to day shift to call Dr to see if he wants to d/c isolation for droplet and contact precautions since covid results came back negative.
[2019-08-16 08:00] VITALS: BP 125/74
--- NOTE | 2019-08-16 08:30 | NUR ---
NURSE NOTES: Received pt from Jocelynn RN and MARIELA Landers. Pt A/O x4. No s/s of acute respiratory and cardiac distress. Currently on O2 1L NC. IVF infusing on right FA 22 G, patent and intact. Bed in low position, side rails up x2 and call light within reach. Will continue to monitor.
[2019-08-16] MEDS: Theophylline ER 100mg ORAL SCH (10:17)
[2019-08-16] MEDS: valACYclovir HCL 500mg tab ORAL SCH (10:17)
[2019-08-16 12:00] VITALS: BP 127/71
--- NOTE | 2019-08-16 13:07 | NUR ---
CASE MANAGEMENT:REVIEW 08/16/19 SI: COPD EXACERBATION. LEUKOCYTOSIS SUBSTANCE ABUSE(+) FOR COCAINE COVID(-) 98.2 79 20 125/74 97% ON 2L/NC NO LABS TODAY IS: IVF@75/HR IV ROCEPHIN Q24 IV AZITHROMYCIN Q24 VALTREX PO Q12 NORVASC PO QD PREDNISONE PO QD THEOPHYLLINE PO Q12 ALBUTEROL MDI Q6HRS PRN : TELEMETRY STATUS DCP: FROM HOME
--- NOTE | 2019-08-16 14:08 | Pulmonology Progress Note ---
Subjective Interval Events: None new Constitutional: Reports: no symptoms HEENT: Repors: no symptoms Respiratory: Reports: productive cough Cardiovascular: Reports: no symptoms Gastrointestinal/Abdominal: Reports: no symptoms Allergies: Coded Allergies: No Known Allergies (Unverified , 05/27/19) Objective Last 24 Hour Vital Signs Date Time Temp Pulse Resp B/P (MAP) Pulse Ox O2 Delivery O2 Flow Rate FiO2 08/16/19 12:00 84 08/16/19 12:00 98.2 79 0 127/71 (89) 98 08/16/19 10:18 79 125/74 08/16/19 09:00 Nasal Cannula 2.0 08/16/19 08:00 98.2 79 20 125/74 (91) 97 08/16/19 04:00 84 08/16/19 04:00 97.7 81 18 122/74 (90) 96 08/16/19 00:00 97.9 77 19 132/82 (99) 97 08/16/19 00:00 94 08/15/19 23:05 Nasal Cannula 2.0 08/15/19 20:00 99.7 87 19 120/67 (84) 98 08/15/19 20:00 96 08/15/19 16:00 98.6 55 18 129/74 (92) 100 08/15/19 16:00 92 Intake and Output 08/15/19 08/16/19 19:00 07:00 Intake Total 140 ml 1005 ml Output Total 1200 ml Balance -1060 ml 1005 ml Intake Oral 140 ml IV Total 1005 ml Output Urine Total 1200 ml # Voids 3 2 General Appearance: no acute distress HEENT: normocephalic Respiratory: chest wall non-tender, lungs clear Cardiovascular: normal peripheral pulses Abdomen: normal bowel sounds Microbiology Date/Time Source Procedure Growth Status 08/14/19 23:15 Nasopharynx Coronavirus COVID-19 PCR (EVAN) - Final Complete 08/14/19 22:30 Nasopharynx SARS-CoV-2 RdRp Gene Assay - Final Complete 08/15/19 04:50 Rectal Mucosa Received Laboratory Tests 08/15/19 15:35: White Blood Count 21.6H, Red Blood Count 4.56, Hemoglobin 12.0, Hematocrit 37.2 , Mean Corpuscular Volume 81, Mean Corpuscular Hemoglobin 26.4L, Mean Corpuscular Hemoglobin Concent 32.4, Red Cell Distribution Width 14.8, Platelet Count 273, Mean Platelet Volume 6.6, Neutrophils (%) (Auto) 90.6H, Lymphocytes ( %) (Auto) 5.7L, Monocytes (%) (Auto) 3.4, Eosinophils (%) (Auto) 0.0, Basophils (%) (Auto) 0.3, Sodium Level 138, Potassium Level 4.0, Chloride Level 104, Carbon Dioxide Level 22, Anion Gap 12, Blood Urea Nitrogen 23H, Creatinine 1.0, Estimat Glomerular Filtration Rate > 60, Glucose Level 150H, Calcium Level 8.7 Current Medications Medications (Trade) Dose Ordered Sig/Kathie Route PRN Reason Start Time Stop Time Status Last Admin Dose Admin Acetaminophen/ Hydrocodone Bitart ([place] 5/325) 1 tab Q6H PRN ORAL FOR PAIN 08/15/19 05:15 08/22/19 05:14 08/16/19 10:42 Albuterol Sulfate (Proventil MDI) 2 puff Q6H PRN INH Shortness of Breath 08/15/19 20:45 11/13/19 20:44 08/15/19 21:50 Amlodipine Besylate (Norvasc) 10 mg DAILY ORAL 08/15/19 09:00 09/14/19 08:59 08/16/19 10:18 Azithromycin 500 mg/Dextrose 275 ml @ 275 mls/hr Q24H IV 08/15/19 22:00 08/21/19 22:59 08/15/19 21:50 Ceftriaxone Sodium 1 gm/ Dextrose 55 ml @ 110 mls/hr Q24H IVPB 08/15/19 22:00 08/22/19 21:59 08/15/19 21:49 Prednisone (predniSONE) 60 mg DAILY ORAL 08/15/19 09:00 09/14/19 08:59 08/16/19 10:17 Sodium Chloride 1,000 ml @ 75 mls/hr [id number] IV 08/15/19 07:45 09/14/19 07:44 08/16/19 13:57 Theophylline (Eddie-Dur) 100 mg EVERY 12 HOURS ORAL 08/15/19 09:00 11/13/19 08:59 08/16/19 10:17 Valacyclovir HCl (Valtrex) 1,000 mg Q12H ORAL 08/15/19 21:00 09/14/19 20:59 08/16/19 10:17 Zolpidem Tartrate (Ambien) 5 mg HSPRN PRN ORAL Insomnia 08/15/19 21:55 08/22/19 21:54 08/15/19 22:16 Assessment/Plan Assessment/Plan IMPRESSION: 1. COPD with exacerbation. 2. Leukocytosis. 3. Substance abuse. DISCUSSION: Continue steroids, antibiotics. Her COVID test is negative. Anticipate discharge in the next 24 hours. Darrick Alvarez Omar Syed MD Aug 16, 2019 14:08
[2019-08-16] MEDS ORDERED: Albuterol ud Inhalation HHN PRN (16:45)
[2019-08-16] MEDS ORDERED: Tubing IV Secondary IV ONE (17:39)
[2019-08-16] MEDS ORDERED: D5W 275ml ONE (17:39)
--- NOTE | 2019-08-16 22:00 | Progress Note ---
DATE: 08/16/2019 SUBJECTIVE: This is an elderly female, came with acute COPD exacerbation and the patient was short of breath, hypoxia. The patient is still anxious, physically doing better. COVID test was negative. PHYSICAL EXAMINATION: VITAL SIGNS: Blood pressure is 127/71, pulse 84, no fever. CHEST: Bilaterally decreased breath sounds. CARDIOVASCULAR: Regular rhythm. ABDOMEN: Soft. EXTREMITIES: CCE. NEUROLOGIC: Generalized weakness. LABORATORY AND DIAGNOSTIC DATA: White counts are 21,000 yesterday. Chemistry panel, BUN 23, creatinine 1. Her chest x-ray report is showing a right lung infiltrate. ASSESSMENT: 1. Pneumonia. 2. COPD. 3. Hypertension. 4. Chronic pain. PLAN: The patient wants to go home. We will add Zithromax. Continue bronchodilator treatments. Recommended followup as outpatient. Hiren Graves M.D. DR: JOSE LUIS JOB#: [id number] CC:
--- NOTE | 2019-08-17 09:50 | NUR ---
*-*INSURANCE *-* UPDATED CLINICALS AND REVIEWS HAVE BEEN FAXED TO: [facility] PROFESSIONAL ONLY P: [phone] F: [phone] & RONIT JONES#[id number] F: [phone] Addendum: 08/17/19 at 0952 by TANNER ORO CM NO DISCHARGE SUMMARY IN THE SYSTEM UNABLE TO FAX TO INS [facility]
--- NOTE | 2019-08-19 17:25 | Discharge Summary ---
Discharge Summary Discharge Summary _ DATE OF ADMISSION: 08/14/2019 DATE OF DISCHARGE: 08/16/2019 DISCHARGED BY: Dr. Graves REASON FOR ADMISSION: 64 years old female with past medical history of hypertension, COPD, lumbar spine stenosis, COPD, who resides at home, presented with complaints of shortness of breath and dizziness, ongoing since morning. She denied chest pain. No fever or chills. No nausea or vomiting. Patient felt that standing up worsening her symptoms. Patient also reported headache. No focal weakness , no neck pain , no photophobia. CT of the head revealed: 1. High right parietal peripheral likely extraaxial 0.8cm hyperattenuating focus could represent a mass, although extra-axial hemorrhage could also have this appearance. No mass effect. 2. Linear 1.1 cm in length, 1 cm in height, thin hyperdensity in the region of the right frontoparietal subcortical white matter axial series 7 image 17 of uncertain significance. Although this would be an atypical presentation, this could represent intraparenchymal hemorrhage. Alternatively, this could represent subarachnoid hemorrhage within a poorly delineated sulcus. No mass effect. 3. Recommend MRI brain No acute intracranial pathology otherwise. Chest x-ray demonstrated right lung infiltrate. CT scan of the chest, abdomen and pelvis revealed: -Patchy right base ground-glass opacities with nodular component , measuring up to 2 cm , probably represents pneumonia, although underlying neoplasm in this area cannot be definitively excluded. -Scattered right apical nodularity measuring up to 0.5 cm /indeterminate, can be followed on subsequent imaging. -Small hiatal hernia. -No acute abdominal-pelvic abnormality was identified. - Prominent colonic stool burden, which could be a cause for pain. - Liquid small bowel contents could be incidental or could represent an infectious or inflammatory enteritis in the proper context. - Prominent urinary bladder size MRI of the brain revealed : - No acute infarct, hemorrhage, or hydrocephalus. - Two extra-axial heterogeneously enhancing lesions in the right temporal and parietal convexities. Presumably meningiomas although not classic based on enhancement pattern. No significant mass-effect or surrounding edema. Recommend follow-up in 3 months Laboratory work-up revealed significant leukocytosis WBC 21, stable hemoglobin , hematocrit and platelet count. Sodium 135, potassium 3.4. BUN 14, creatinine 1.2. Stable LFT. Troponin negative, CK 692 Albumin 3.9. Urine toxicology screen was positive for cocaine. Urinalysis revealed no pyuria, +2 protein. Patient subsequently admitted for further management. CONSULTANTS: pulmonary Dr. Izquierdo [facility] COURSE: Patient admitted to telemetry floor. Patient started on the IV steroids and empiric antibiotic. Patient initially was kept in isolation. Rapid SARS-CoV-2 and swab by PCR were both negative. Isolation discontinued. Patient had leukocytosis, no fevers. Leukocytosis was likely due reactive, due to steroids. Supplemental oxygen provided and titrated to keep pulse oximetry above 92%. Pulmonary toilet provided. Renal parameters and electrolytes were closely monitored. Potassium was replaced and remained stable. Patient clinically stabilized and was ready for discharge. Prescription provided. FINAL DIAGNOSES: Pneumonia COPD exacerbation Suspected COVID-19 - ruled out Leukocytosis Hypertension Chronic pain Substance abuse/cocaine abuse DISCHARGE MEDICATIONS: List of medication was sent with patient DISCHARGE INSTRUCTIONS: Patient was discharged home. Follow-up with primary care provider in 1 week. Lab with MRI of the brain in [address] of the chest in 3to 6 months as recommended. I have been assigned to dictate discharge summary for this account. I was not involved in the patient's management. Maida Garcia NP Aug 19, 2019 17:25
--- NOTE | 2019-08-20 13:33 | NUR ---
*-*INSURANCE *-* DISCHARGE SUMMARY HAS BEEN FAXED TO [facility] [place] PROFESSIONAL ONLY P: [phone] F: [phone] & BS [employer] AUTH#[id number] F: [phone]
== END 2019-08-16 17:40 | disposition still patient (30) | DRG 140 ==
LOC: EMR 21:50 → 2E 22:26 → EDBEDREQ 08-15 01:10
DX: J44.0 Chronic obstructive pulmonary disease with (acute) lower respiratory infection (principal); J18.9 Pneumonia, unspecified organism; J44.1 Chronic obstructive pulmonary disease with (acute) exacerbation; E87.1 Hypo-osmolality and hyponatremia; D32.0 Benign neoplasm of cerebral meninges; I10 Essential (primary) hypertension; F19.10 Other psychoactive substance abuse, uncomplicated; G89.29 Other chronic pain; M54.9 Dorsalgia, unspecified; Z87.891 Personal history of nicotine dependence; Z20.828 Contact with and (suspected) exposure to other viral communicable diseases
CPT/HCPCS: 36415; 70450; 70553; 71045; 71250; 74176; 80048; 80053; 80307; 81003; 82248; 82550; 84484; 85007; 85025; 87081; 93005; 96365; 96366; 96368; 96375; 99285; A9585; J7030; U0002

== ENCOUNTER 2020-04-07 09:26 | Emergency (ER) | payer MEDICAID ==
[~2020-04-07] VITALS: Ht 167.6 cm; Wt 61.2 kg
[2020-04-07 09:32] VITALS: BP 154/86
--- NOTE | 2020-04-07 09:57 | Emergency Room Report ---
History of Present Illness General Chief Complaint: Wheezing Source: Patient Present Illness HPI Disclaimer: Please note that this report is being documented using [employer] technology. This can lead to erroneous entry secondary to incorrect interpretation by the dictating instrument. HPI: 64-year-old female history of nonoxygen dependent COPD presents for evaluation of shortness of breath and wheezing. Patient states she was exposed to secondhand smoke several days ago after since feeling wheezy and short of breath. Consistent with prior COPD exacerbations. Denies fever or chills. Denies new cough but reports her chronic cough. Denies nausea or vomiting. Denies exposure to sick contacts. Currently changing her PMD to a new clinic with a banking pin adjuster so she can follow-up more regularly. PMH: COPD PSH: Reviewed Allergies: Reviewed Social Hx: Former smoker Allergies: Coded Allergies: No Known Allergies (Unverified , 04/07/20) COVID-19 Screening Contact w/high risk pt: No Recent Travel to affected area: No Experienced COVID-19 symptoms?: No Nursing Documentation-PMH Hx Cardiac Problems: Yes Hx Hypertension: Yes Hx Pacemaker: No Hx Asthma: No Hx COPD: Yes Hx Diabetes: No Hx Cancer: No Hx Gastrointestinal Problems: No Hx Dialysis: No Hx Neurological Problems: No Hx Cerebrovascular Accident: No Hx Seizures: No Review of Systems All Other Systems: negative except mentioned in HPI Physical Exam General: Awake and alert, no acute distress HEENT: NC/AT. EOMI. Cardiovascular: RRR. S1 and S2 normal. No murmur appreciated Resp: Normal work of breathing. Intermittent dry cough. Bilateral expiratory w heezes. No crackles. Skin: Intact. No abrasions, laceration or rash over the exposed skin MSK: Normal tone and bulk. Moving all extremities. No obvious deformity. Neuro: Awake and alert. Mentating appropriately. Medical Decision Making Diagnostic Impression: Primary Impression: COPD with acute exacerbation ER Course 64-year-old female presents for evaluation of several days wheezing. Concern for pneumonia, bronchitis, COPD exacerbation, asthma exacerbation. Patient given breathing treatments and oral prednisone. Improved after 3 treatments. Wheezing resolved. No infiltrate noted on chest x-ray. Saturating mid 90s on room air. Patient states she feels much better would like to go home. Refilled her albuterol, prednisone. She is asking for refills of her pain medication but she will have to follow-up with her PMD as these are controlled substances prescribed for chronic pain. I did offer Tylenol. Also requesting something for cough. She is stable for outpatient follow-up peer instructed to return new or worsening symptoms. Chest X-Ray Diagnostic Results Chest X-Ray Diagnostic Results : Chest X-Ray Ordered: Yes # of Views/Limited/Complete: 1 View Indication: Shortness of Breath EP Interpretation: Yes Interpretation: no consolidation, no effusion, no pneumothorax, no acute cardiopulmonary disease Impression: No acute disease Electronically Signed by: Electronically signed by Dr. Maico Broussard MD Disposition: HOME, SELF-CARE Condition: Stable Scripts Promethazine Hcl (PROMETHAZINE HCL*) 6.25 Mg/5 Ml Syrup 10 ML ORAL Q6H, #120 ML 0 Refills Prov: Maico Broussard MD 04/07/20 Acetaminophen* (TYLENOL EXTRA STRENGTH*) 500 Mg Tablet 500 MG ORAL Q8H PRN for Prn Headache/Temp > 101, #30 TAB 0 Refills Prov: Maico Broussard MD 04/07/20 Albuterol Sulfate (VENTOLIN HFA) 18 Gm Hfa.aer.ad 1 PUFF INH EVERY 6 HOURS, #18 GM 0 Refills Prov: Maico Broussard MD 04/07/20 Prednisone* (PREDNISONE*) 20 Mg Tablet 60 MG ORAL DAILY, #18 TAB Prov: Maico Broussard MD 04/07/20 Maico Broussard MD Apr 07, 2020 09:57
[2020-04-07] MEDS ORDERED: HYDROcodone/Acetamin 5/325 tab ORAL ONE (10:00)
[2020-04-07] MEDS: Albuterol/Ipratropium 3ml neb HHN SCH (10:07)
[2020-04-07] MEDS ORDERED: PREDNISONE20 MG ORAL (10:33)
[2020-04-07] MEDS ORDERED: VENTOLIN HFA18 GM INH (11:25)
[2020-04-07] MEDS ORDERED: TYLENOL EXTRA500 MG ORAL (11:25)
[2020-04-07] MEDS ORDERED: PROMETHAZI6.25 MG/1 ORAL (11:25)
--- NOTE | 2020-04-07 16:46 | Diagnostic Imaging Report ---
Indication: Shortness of breath Technique: One view of the chest Comparison: none Findings: Lungs and pleural spaces are clear. Heart size is normal. Previously demonstrated infiltrates are no longer evident. The aorta is tortuous and ectatic. Impression: No acute process
== END 2020-04-07 11:31 | disposition home or self-care (01) ==
LOC: EMR 10:02
DX: J44.1 Chronic obstructive pulmonary disease with (acute) exacerbation (principal); I10 Essential (primary) hypertension; Z87.891 Personal history of nicotine dependence
CPT/HCPCS: 71045; 94640; J7512; Z7502; 99283; J7620